=== PATIENT | female | born 1955 | race Two or more races ===

== ENCOUNTER 2017-02-13 14:38 | Emergency (ER) | payer MEDICAID ==
[~2017-02-13] VITALS: Ht 160 cm; Wt 54.0 kg
[2017-02-13 14:43] VITALS: BP 130/83
[2017-02-13] MEDS ORDERED: SODIUM CHLORIDE 0.9% 1,000 ML IV ONE (15:17)
[2017-02-13] MEDS ORDERED: CLINDAMYCIN 600MG IV 50 ML IV ONE (15:30)
[2017-02-13 15:59] LABS: Urine Bilirubin Negative (Negative); Urine Blood Negative /uL (Negative); Urine Color Yellow (Yellow); Urine Glucose 4+ mg/dL (Normal); Urine Ketone Negative (Negative); Urine Nitrite Negative (Negative); Urine RBC <1 /hpf (0 - 4); Urine Squamous Epithelial Cell FEW /hpf (<5); Urine Urobilinogen Normal (Negative); Urine pH 5.5 (5.0-8.0)
== END 2017-02-13 18:00 | disposition home or self-care (01) ==
LOC: ER 14:38
DX: R10.9 Unspecified abdominal pain (principal); F17.210 Nicotine dependence, cigarettes, uncomplicated
CPT/HCPCS: 81001; 93005

== ENCOUNTER 2017-03-08 12:18 | Emergency (ER) | payer MEDICAID ==
[~2017-03-08] VITALS: Ht 160 cm; Wt 50.8 kg
[2017-03-08 13:38] LABS: Basophils # (auto) 0 uL; Basophils % (auto) 0.6 % (0.0-2.0); Eosinophils # (auto) 0.1 uL; Eosinophils % (auto) 1.8 % (0.0-7.0); Hematocrit 43.4 % (36.0-46.0); Hemoglobin 14.8 g/dL (12.2-16.2); Lymphocytes # (auto) 2.2 uL; Lymphocytes % (auto) 41.4 % (10.0-50.0); Mean Corpuscular Hemoglobin 32.7 pg (28.0-32.0); Mean Corpuscular Hgb Conc. 34.1 g/dL (32.0-36.0); Mean Corpuscular Volume 95.9 fL (80.0-100.0); Monocytes # (auto) 0.4 uL; Monocytes % (auto) 7.6 % (0.0-12.0); Neutrophils # (auto) 2.6 uL; Neutrophils % (auto) 48.6 % (37.0-80.0); Nucleated Red Blood Cells % 0.2 %; Platelet Count (auto) 154 10^3/uL (140-450); Red Blood Cells 4.53 10^6/uL (4.0-5.20); Red Cell Distribution Width 13.5 % (11.8-14.3); White Blood Cell 5.4 10^3/uL (4.4-10.8)
[2017-03-08 13:46] LABS: Urine Bacteria NONE SEEN /hpf (None Seen); Urine Blood Negative /uL (Negative); Urine Specific Gravity 1.011 (1.001-1.035); Urine WBC <1 /hpf (0 - 5)
[2017-03-08 14:07] LABS: Alanine Aminotransferase 89 U/L (13-56); Albumin 3.9 g/dL (3.4-5.0); Alkaline Phosphatase 76 U/L (45-117); Amylase 81 U/L (25-115); Anion Gap 9 (5-15); Aspartate Aminotransferase 70 U/L (15-37); BUN/Creatinine Ratio 14.3; Bilirubin, Total 0.7 mg/dL (0.2-1.0); Blood Urea Nitrogen 9 mg/dL (7-18); Calcium 8.9 mg/dL (8.5-10.1); Carbon Dioxide 22 mmol/L (21-32); Chloride 108 mmol/L (98-107); GFR African American 124 mL/min; GFR Non-African American 102 mL/min; Glucose 104 mg/dL (74-106); Lipase 214 U/L (73-393); Potassium 3.9 mmol/L (3.5-5.1); Sodium 139 mmol/L (136-145); Total Protein 7.6 g/dL (6.4-8.2)
[2017-03-08] MEDS ORDERED: HYDROcodone-ACET 5/325MG TAB PO ONE (20:45)
[2017-03-08 20:49] VITALS: BP 107/74
== END 2017-03-08 21:51 | disposition home or self-care (01) ==
LOC: ER 12:18
DX: R10.11 Right upper quadrant pain (principal); E11.9 Type 2 diabetes mellitus without complications; I10 Essential (primary) hypertension; B19.20 Unspecified viral hepatitis C without hepatic coma; F17.210 Nicotine dependence, cigarettes, uncomplicated
CPT/HCPCS: 36415; 71010; 74176; 80053; 81001; 82150; 83690; 84484; 85025; 93005

== ENCOUNTER 2021-03-31 15:13 | Emergency (ER) | payer MEDICAID ==
[~2021-03-31] VITALS: Ht 160 cm; Wt 56.7 kg
[2021-03-31] MEDS ORDERED: cefTRIAXone 1GM/50ML D5W 50 ML IV ONE (17:45)
[2021-03-31 17:50] VITALS: BP 134/92
== END 2021-03-31 19:04 | disposition home or self-care (01) ==
LOC: ER 15:13
DX: S60.426A Blister (nonthermal) of right little finger, initial encounter (principal); I89.1 Lymphangitis; E11.9 Type 2 diabetes mellitus without complications; I10 Essential (primary) hypertension; F17.210 Nicotine dependence, cigarettes, uncomplicated; X58.XXXA Exposure to other specified factors, initial encounter; Y93.89 Activity, other specified; Y92.89 Other specified places as the place of occurrence of the external cause; Y99.8 Other external cause status
CPT/HCPCS: 26010; 96365; 99284; J0696

== ENCOUNTER 2021-04-01 14:37 | Emergency (ER) | payer MEDICAID ==
[~2021-04-01] VITALS: Ht 160 cm; Wt 56.7 kg
[2021-04-01 17:18] VITALS: BP 147/91
[2021-04-01] MEDS ORDERED: cefTRIAXone 1GM/50ML D5W 50 ML IV ONE (17:30)
== END 2021-04-01 19:01 | disposition home or self-care (01) ==
LOC: ER 14:37
DX: S60.42 Blister (nonthermal) of fingers (principal); L08.9 Local infection of the skin and subcutaneous tissue, unspecified; I89.1 Lymphangitis; I10 Essential (primary) hypertension; E11.9 Type 2 diabetes mellitus without complications; F17.210 Nicotine dependence, cigarettes, uncomplicated; X58.XXXD Exposure to other specified factors, subsequent encounter
CPT/HCPCS: 96365; 99284; J0696

== ENCOUNTER 2021-04-02 08:28 | Emergency (ER) | payer MEDICAID ==
[~2021-04-02] VITALS: Ht 160 cm; Wt 56.7 kg
[2021-04-02 09:01] VITALS: BP 163/83
[2021-04-02] MEDS ORDERED: cefTRIAXone 1GM/50ML D5W 50 ML IV ONE (09:45)
[2021-04-02] MEDS ORDERED: CLINDAMYCIN 600MG IV 50 ML IV ONE (10:00)
== END 2021-04-02 10:41 | disposition home or self-care (01) ==
LOC: ER 08:28
DX: L03.011 Cellulitis of right finger (principal); E11.9 Type 2 diabetes mellitus without complications; I10 Essential (primary) hypertension; F17.210 Nicotine dependence, cigarettes, uncomplicated
CPT/HCPCS: 96365; 96368; 99284; J0696; J3490

== ENCOUNTER 2021-08-28 16:03 | Emergency (ER) | payer MEDICAID ==
[~2021-08-28] VITALS: Ht 160 cm; Wt 54.4 kg
[2021-08-28 18:52] LABS: Basophils # (auto) 0 10 ^3/uL (0-0.2); Basophils % (auto) 0.5 % (0.0-2.0); Eosinophils # (auto) 0.1 10 ^3/uL (0-0.8); Eosinophils % (auto) 1.6 % (0.0-7.0); Hematocrit 39.9 % (36.0-46.0); Hemoglobin 13.9 g/dL (12.2-16.2); Lymphocytes # (auto) 2.6 10 ^3/uL (0.4-5.4); Lymphocytes % (auto) 39.1 % (10.0-50.0); Mean Corpuscular Hemoglobin 31.9 pg (28.0-32.0); Mean Corpuscular Hgb Conc. 34.7 g/dL (32.0-36.0); Mean Corpuscular Volume 91.8 fL (80.0-100.0); Monocytes # (auto) 0.4 10 ^3/uL (0-1.3); Monocytes % (auto) 5.9 % (0.0-12.0); Neutrophils # (auto) 3.5 10 ^3/uL (1.6-8.6); Neutrophils % (auto) 52.9 % (37.0-80.0); Nucleated Red Blood Cells % 0.3 %; Red Blood Cells 4.35 10^6/uL (4.0-5.20); Red Cell Distribution Width 13.9 % (11.8-14.3); White Blood Cell 6.6 10^3/uL (4.4-10.8)
[2021-08-28 19:03] LABS: Potassium 4.1 mmol/L (3.5-5.1)
[2021-08-28 19:05] LABS: BUN/Creatinine Ratio 13.4
[2021-08-28 19:08] LABS: Bilirubin, Total 0.4 mg/dL (0.2-1.0); Total Protein 7.5 g/dL (6.4-8.2)
[2021-08-28 19:11] LABS: Urine Bacteria NONE SEEN /hpf (None Seen); Urine Blood Negative /uL (Negative); Urine Specific Gravity 1.008 (1.001-1.035); Urine WBC 1 /hpf (0 - 5)
[2021-08-28] MEDS ORDERED: METR500T PO (20:04)
[2021-08-28] MEDS ORDERED: LEVO500T31 PO (20:04)
[2021-08-28 20:21] VITALS: BP 140/81
== END 2021-08-28 20:25 | disposition home or self-care (01) ==
LOC: ER 16:03
DX: K57.32 Diverticulitis of large intestine without perforation or abscess without bleeding (principal); I10 Essential (primary) hypertension; E11.9 Type 2 diabetes mellitus without complications; F17.210 Nicotine dependence, cigarettes, uncomplicated
CPT/HCPCS: 36415; 74176; 80053; 81001; 85025; 93005

== ENCOUNTER 2021-10-20 10:32 | Emergency (ER) | payer MEDICARE, MEDICAID ==
[~2021-10-20] VITALS: Ht 160 cm; Wt 59.0 kg
[~2021-10-20 10:32] MED LIST: LEVO500T31 PO; METR500T PO
[2021-10-20 11:26] LABS: Basophils # (auto) 0 10 ^3/uL (0-0.2); Basophils % (auto) 0.6 % (0.0-2.0); Eosinophils # (auto) 0.1 10 ^3/uL (0-0.8); Eosinophils % (auto) 2.2 % (0.0-7.0); Hemoglobin 13.4 g/dL (12.2-16.2); Lymphocytes # (auto) 2.6 10 ^3/uL (0.4-5.4); Lymphocytes % (auto) 43.1 % (10.0-50.0); Mean Corpuscular Hemoglobin 31.3 pg (28.0-32.0); Mean Corpuscular Hgb Conc. 32.6 g/dL (32.0-36.0); Mean Corpuscular Volume 95.9 fL (80.0-100.0); Monocytes # (auto) 0.4 10 ^3/uL (0-1.3); Monocytes % (auto) 7.3 % (0.0-12.0); Neutrophils # (auto) 2.8 10 ^3/uL (1.6-8.6); Neutrophils % (auto) 46.8 % (37.0-80.0); Nucleated Red Blood Cells % 0.1 %; Red Blood Cells 4.27 10^6/uL (4.0-5.20); Red Cell Distribution Width 13.6 % (11.8-14.3)
[2021-10-20] MEDS ORDERED: SODIUM CHLORIDE 0.9% 500 ML IVB ONE (11:30)
[2021-10-20] MEDS ORDERED: SODIUM CHLORIDE 0.9% 1,000 ML IV ONE (11:30)
[2021-10-20 11:49] LABS: Albumin 3.9 g/dL (3.4-5.0); Calcium 9.2 mg/dL (8.5-10.1); Potassium 3.7 mmol/L (3.5-5.1)
[2021-10-20 11:52] LABS: BUN/Creatinine Ratio 14.8
[2021-10-20 11:53] LABS: Bilirubin, Total 0.5 mg/dL (0.2-1.0); Total Protein 7.5 g/dL (6.4-8.2)
[2021-10-20 12:00] LABS: Magnesium 2.1 mg/dL (1.6-2.6)
[2021-10-20 12:13] LABS: Urine WBC None Seen /hpf (0 - 5)
[2021-10-20 12:35] LABS: Urine Bacteria NONE SEEN /hpf (None Seen); Urine Blood Negative /uL (Negative); Urine Specific Gravity 1.006 (1.001-1.035)
[2021-10-20] MEDS ORDERED: LISI-711 PO (16:48)
[2021-10-20] MEDS ORDERED: NAP500T PO (16:48)
[2021-10-20] MEDS ORDERED: KETOROLAC TROMETH 30 MG/ML 1ML VIAL IV ONE (17:00)
[2021-10-20 17:45] VITALS: BP 154/78
== END 2021-10-20 17:45 | disposition home or self-care (01) ==
LOC: ER 10:32
DX: N94.89 Other specified conditions associated with female genital organs and menstrual cycle (principal); I10 Essential (primary) hypertension; F17.210 Nicotine dependence, cigarettes, uncomplicated; E11.9 Type 2 diabetes mellitus without complications
CPT/HCPCS: 36415; 71046; 74177; 80053; 81001; 83690; 83735; 84443; 85025; 93005; 96361; 96374; 99285; J1885; J7030; J7040

== ENCOUNTER 2021-12-15 13:10 | Day surgery (SDC) | payer MEDICARE, MEDICAID ==
[2021-12-13 11:58] LABS: Basophils # (auto) 0 10 ^3/uL (0-0.2); Basophils % (auto) 0.5 % (0.0-2.0); Eosinophils # (auto) 0.1 10 ^3/uL (0-0.8); Eosinophils % (auto) 1.8 % (0.0-7.0); Hematocrit 38.6 % (36.0-46.0); Hemoglobin 12.8 g/dL (12.2-16.2); Lymphocytes # (auto) 1.9 10 ^3/uL (0.4-5.4); Lymphocytes % (auto) 29.5 % (10.0-50.0); Mean Corpuscular Hemoglobin 31.6 pg (28.0-32.0); Mean Corpuscular Hgb Conc. 33.2 g/dL (32.0-36.0); Mean Corpuscular Volume 95.2 fL (80.0-100.0); Monocytes # (auto) 0.4 10 ^3/uL (0-1.3); Monocytes % (auto) 6.2 % (0.0-12.0); Nucleated Red Blood Cells % 0.1 %; Red Blood Cells 4.06 10^6/uL (4.0-5.20); Red Cell Distribution Width 13.2 % (11.8-14.3); White Blood Cell 6.5 10^3/uL (4.4-10.8)
[2021-12-13 12:26] LABS: INR 0.95 (0.9-1.15); Partial Thromboplastin Time 26.2 sec (24.6-33.4)
[2021-12-13 12:29] LABS: Albumin 3.8 g/dL (3.4-5.0); BUN/Creatinine Ratio 21.4; Bilirubin, Total 0.3 mg/dL (0.2-1.0); Calcium 9.1 mg/dL (8.5-10.1); Total Protein 7.2 g/dL (6.4-8.2)
[~2021-12-15] VITALS: Ht 154.9 cm; Wt 54.4 kg
[~2021-12-15 13:10] MED LIST changes: +ALEN70TA2 PO; +CAPS0.1C6 EX; +CLON0.5T PO; +DICY10CA PO; +FAMO20TA10 PO; +INSREG3 IV; -LEVO500T31 PO; +LISI20TA28 PO; +METF-370 PO; -METR500T PO
[2021-12-15] MEDS ORDERED: SODIUM CHLORIDE LOCK 10 ML ONE (14:18)
[2021-12-15] MEDS: MIDAZOLAM HCL 5 MG/ML-1ML VIAL ONE ×2 (15:15→15:21)
[2021-12-15] MEDS: diphenhdrAMINE HCL 50 MG/1 ML VL ONE ×2 (15:15→15:22)
[2021-12-15] MEDS: fentaNYL CITRATE 100 MCG/2 ML VL ONE ×3 (15:15→15:25)
[2021-12-15 16:10] VITALS: BP 132/70
== END 2021-12-15 16:20 | disposition home or self-care (01) ==
LOC: GI 13:10
PROVIDERS: ATTEND Internal Medicine Gastroenterology
DX: Z12.11 Encounter for screening for malignant neoplasm of colon (principal); K64.8 Other hemorrhoids; K63.89 Other specified diseases of intestine; I10 Essential (primary) hypertension; E11.9 Type 2 diabetes mellitus without complications; K21.9 Gastro-esophageal reflux disease without esophagitis; B19.20 Unspecified viral hepatitis C without hepatic coma; F41.9 Anxiety disorder, unspecified; Z20.822 Contact with and (suspected) exposure to COVID-19
CPT/HCPCS: 36415; 80053; 82962; 85025; 85610; 85730; G0121; J1200; J2250; J3010; J7030; U0003; G0500

== ENCOUNTER → 2023-08-24 | Outpatient (CLI) | payer MEDICARE, MEDICAID ==
[~2023-08-24] MED LIST changes: -ALEN70TA2 PO; +ALEN70TA21 PO; +CLON-1003 PO; -CLON0.5T PO; -LISI20TA28 PO; +LISI20TA56 PO
[2023-08-24 13:02] LABS: Urine Bacteria FEW /hpf (None Seen); Urine Blood 3+ /uL (Negative); Urine Clarity Turbid (Clear); Urine Color Colorless (Yellow); Urine Protein, UAD Negative (Negative); Urine Specific Gravity 1.008 (1.001-1.035); Urine Urobilinogen Normal (Negative); Urine WBC 194 /hpf (0 - 5); Urine WBC Clumps PRESENT /hpf (None Seen)
== END | disposition home or self-care (01) ==
LOC: LAB 12:08
PROVIDERS: ATTEND Internal Medicine Gastroenterology
DX: R10.32 Left lower quadrant pain (principal)
CPT/HCPCS: 81001; 87086

== ENCOUNTER 2024-06-09 11:42 | Emergency (ER) | payer OTHER, MEDICARE, MEDICAID ==
[~2024-06-09] VITALS: Ht 160 cm; Wt 60.0 kg
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
[2024-06-09] MEDS: KETOROLAC TROMETH 30 MG/ML 1ML VIAL IM ONE (13:11)
[2024-06-09] MEDS: ACETAMINOPHEN 325 MG TAB PO ONE (13:12)
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
[2024-06-09 15:55] VITALS: BP 118/72; PULSE 73; RESP 16; TEMP 97.9; O2SAT 98
== END 2024-06-09 16:02 | disposition home or self-care (01) ==
LOC: ER 11:42
DX: M51.17 Intervertebral disc disorders with radiculopathy, lumbosacral region (principal); I10 Essential (primary) hypertension; E11.9 Type 2 diabetes mellitus without complications; F17.210 Nicotine dependence, cigarettes, uncomplicated; Z79.84 Long term (current) use of oral hypoglycemic drugs; Z79.899 Other long term (current) drug therapy; V89.2XXA Person injured in unspecified motor-vehicle accident, traffic, initial encounter; Y93.I9 Activity, other involving external motion; Y92.488 Other paved roadways as the place of occurrence of the external cause; Y99.8 Other external cause status
CPT/HCPCS: 72100; 96372; 99283; J1885

== ENCOUNTER 2024-10-12 09:42 | Inpatient (IN) | payer MEDICARE, MEDICAID ==
[~2024-10-12] VITALS: Ht 160 cm; Wt 59.4 kg
--- NOTE | 2024-10-12 10:06 | ED.PDOC ---
History of Present Illness HPI Comments 69F presents to the ER w/ prior MHx of DM, Osteopetrosis, HTN, Chronic back pain and the c/c of back pain. Pt reports the back pain starting on September 12 after an epidural shot. The pt stated on seeing her PCP which is Dr. Wolff and was informed on having a infection on the lumbar spine and told to go the the hospital yesterday. Denies chills, fever, N/V/D, SOB, CP. No other associated symptoms, modifiers, recent injuries or sick contacts present at this time. Time Seen by MD: 10:00 Primary Care Provider: ILA Reviewed Notes: Nurses Notes, Medications, Allergies Allergies: Coded Allergies: NO KNOWN ALLERGIES (Unverified , 01/12/15) Home Meds Reported Medications Lisinopril (Lisinopril) 20 Mg Tab, 20 MG PO DAILY, TAB 12/13/21 Famotidine (PEPCID TABLET) 20 Mg Tb, 20 MG PO BID, TAB 12/13/21 Dicyclomine Hcl (BENTYL CAPSULE) 10 Mg Cp, 10 MG PO BID, CAP 12/13/21 Alendronate Sodium (Fosamax) 70 Mg Tab, 70 MG PO QWEEKLY, TAB Take once a week at least 30 minutes before first meal, beverage or medication. 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 Family History Family History: Reviewed,noncontributory to illness, Unknown Social History Smoker: Unknown Alcohol: Unknown Drugs: Unknown Lives In: Home Constitutional: denies: chills, diaphoresis, fatigue, fever, malaise, sweats, weakness, others EENTM: denies: blurred vision, double vision, ear bleeding, ear discharge, ear drainage, ear pain, ear ringing, eye pain, eye redness, hearing loss, mouth pain, mouth swelling, nasal discharge, nose bleeding, nose congestion, nose pain, photophobia, tearing, throat pain, throat swelling, voice changes, others Respiratory: denies: cough, hemoptysis, orthopnea, SOB at rest, shortness of breath, SOB with excertion, stridor, wheezing, others Cardiovascular: denies: chest pain, dizzy spells, diaphoresis, Dyspnea on ex ertion, edema, irregular heart beat, left arm pain, lightheadedness, palpitations, PND, syncope, others Gastrointestinal: denies: abdomen distended, abdominal pain, blood streaked bowels, constipated, diarrhea, dysphagia, difficulty swallowing, hematemesis, melena, nausea, poor appetite, poor fluid intake, rectal bleeding, rectal pain, vomiting, others Genitourinary: denies: abnormal vagina bleeding, burning, dyspareunia, dysuria, flank pain, frequency, hematuria, incontinence, pain, , vagina discharge, urgency, others Neurological: denies: dizziness, fainting, headache, left sided numbness, left sided weakness, numbness, paresthesia, pre-existing deficit, right sided numbness, right sided weakness, seizure, speech problems, tingling, tremors, weakness, others Musculoskeletal: reports: back pain; denies: gout, joint pain, joint swelling, muscle pain, muscle stiffness, neck pain, others Integumetry: denies: bruises, change in color, change in hair/nails, dryness, laceration, lesions, lumps, rash, wounds, others Allergic/Immunocompromised: denies: Difficulty Healing, Frequent Infections, Hives, Itching, others Hematologic/Lymphatic: denies: anemia, blood clots, easy bleeding, easy bruising, swollen glands, others Endocrine: denies: excessive hunger, excessive sweating, excessive thirst, excessive urination, flushing, intolerance to cold, intolerance to heat, unexplained weight gain, unexplained weight loss, others Psychiatric: denies: anxiety, bipolar disorder, depression, hopeless, panic disorder, schizophrenia, sleepless, suicidal, others All Other Systems: Reviewed and Negative Physical Exam Exam Comments diffuse lumbar and perilumbar tenderness General Appearance: No Apparent Distress, Normal HEENT: Normal ENT Inspection, Pharynx Normal, TMs Normal Neck: Full Range of Motion, Non-Tender, Normal, Normal Inspection Respiratory: Chest Non-Tender, Lungs Clear, No Accessory Muscle Use, No Respiratory Distress, Normal Breath Sounds Cardiovascular: No Edema, No JVD, No Murmur, No Gallop, Normal Peripheral Pu lses, Regular Rate/Rhythm Breast Exam: Deferred Gastrointestinal: No Organomegaly, Non Tender, No Pulsatile Mass, Normal Bowel Sounds, Soft Genitalia: Deferred Pelvic: Deferred Rectal: Deferred Extremities: No calf tenderness, Normal capillary refill, Normal inspection, Normal range of motion, Non-tender, No pedal edema Musculoskeletal : Apperance: Normal Neurologic: Alert, auto customize painter II-XII nml as Tested, No Motor Deficits, Normal Affect, Normal Mood, No Sensory Deficits Cerebellar Function: Normal Reflexes: Normal Skin: Dry, Normal Color, Warm Lymphatic: No Adenopathy Was a procedure done? Was a procedure done?: No Differential Dx Considerations may include: osteomyelitis, epidural abscess, diskitis, spine lesions, pathologic spine fractures, herniated disk, X-Ray, Labs, Meds, VS Vital Signs Date Time Temp Pulse Resp B/P (MAP) Pulse Ox O2 Delivery O2 Flow Rate FiO2 10/12/24 10:01 98.4 91 18 128/79 (95) 97 98.4 Time of 1ST Reevaluation: 10:30 Reevaluation 1ST: Unchanged Consultation: Other (i spoke to Dr mccarty, who verified the history and is requesting pt to be admitted for ID consult and iv abx) Patient Education/Counseling: Diagnosis, Treatment, Prognosis, Need For Follow Up Family Education/Counseling: No Family Present Departure 1 Departure Time of Disposition: 10:23 Impression: Primary Impression: Acute osteomyelitis of lumbar spine Disposition: ADMITTED INPATIENT Admit to: Med Surg Condition: Serious Discharged With: Self Critical Care Note Critical Care Time?: No Stability Stability form required: No I personally scribed for SIDRA NAVARRETE MD ([email or web address]) on 10/12/24 at 10:06. Electronically submitted by Glen Powers ([email or web address]). SIDRA NAVARRETE MD Oct 12, 2024 10:06
[2024-10-12] MEDS ORDERED: VANCOMYCIN PER PHARMACY 0 MG IV SCH ×2 (10:15→12:45)
[2024-10-12 10:30] LABS: Basophils # (auto) 0 10 ^3/uL (0-0.2); Basophils % (auto) 0.4 % (0.0-2.0); Eosinophils # (auto) 0.1 10 ^3/uL (0-0.8); Eosinophils % (auto) 1.1 % (0.0-7.0); Hematocrit 38.1 % (36.0-46.0); Hemoglobin 12.9 g/dL (12.2-16.2); Lymphocytes # (auto) 1.6 10 ^3/uL (0.4-5.4); Mean Corpuscular Hemoglobin 30.6 pg (28.0-32.0); Mean Corpuscular Hgb Conc. 33.8 g/dL (32.0-36.0); Mean Corpuscular Volume 90.6 fL (80.0-100.0); Monocytes # (auto) 0.4 10 ^3/uL (0-1.3); Monocytes % (auto) 5.9 % (0.0-12.0); Neutrophils # (auto) 4.9 10 ^3/uL (1.6-8.6); Neutrophils % (auto) 69.6 % (37.0-80.0); Platelet Count (auto) 259 10^3/uL (140-450); Red Blood Cells 4.21 10^6/uL (4.0-5.20); Red Cell Distribution Width 12.6 % (11.8-14.3)
[2024-10-12 10:37] LABS: Chloride 105 mmol/L (98-107); Sodium 140 mmol/L (136-145)
[2024-10-12 10:38] LABS: Anion Gap 11 (5-15); Calcium 10.2 mg/dL (8.7-10.4); Carbon Dioxide 24 mmol/L (20-31)
[2024-10-12 10:43] LABS: Blood Urea Nitrogen 10 mg/dL (9-23)
[2024-10-12 10:48] LABS: Glucose 188 mg/dL (74-106)
[2024-10-12] MEDS: PIPERACILLIN-TAZO 4.5GM 100 ML IV ONE (10:51)
[2024-10-12 10:56] VITALS: PULSE 83; RESP 16; O2SAT 97
[2024-10-12] MEDS ORDERED: ACETAMINOPHEN 325 MG TAB PO PRN (12:30)
[2024-10-12] MEDS ORDERED: SODIUM CHLORIDE 0.9% 1,000 ML IV SCH (12:30)
[2024-10-12] MEDS ORDERED: DEXTROSE (50%) 50ML SYRG IV PRN (12:30)
[2024-10-12] MEDS ORDERED: DOCUSATE SOD 100 MG CAP PO PRN (12:45)
[2024-10-12] MEDS: SODIUM CHLORIDE 0.9% 1,000 ML IV SCH (13:30)
[2024-10-12] MEDS: VANCOMYCIN 1GM/200ML PM 250 ML IV SCH (13:30)
--- NOTE | 2024-10-12 13:33 | DVHHP2 ---
History of Present Illness Reason for Visit: Back pain due to lumbar infection History of Present Illness This is a 69-year-old female with history of DM, osteoporosis, hypertension, chronic back pain who presents to ER with chief complaint of back pain status post epidural injection received on September 02. She states that she went to see Dr. Cortes informed that spine is infected as he you had directed her to go to the hospital. The patient is concerned about her symptoms and would like to be further evaluated and treated. [facility]. The patient denies chills, fever, nausea, vomiting, diarrhea, shortness of breath, chest pain and other associated symptoms. The plan has been discussed with the patient in which all questions concerns have been addressed. Cardiovascular: HTN Endocrine: Diabetes Past Surgical History: None Family History: None Smoke: No ALCOHOL: none Drugs: None Lives: with Family Domestic Violence: Neg Review of Systems Musculoskeletal: back pain Allergies: Coded Allergies: NO KNOWN ALLERGIES (Unverified , 01/12/15) Medications Current Medications Medications Dose Ordered Sig/Eron Route Start Time Stop Time Status Last Admin Dose Admin Vancomycin HCl 0 ml @ 0 mls/hr UD IV 10/12/24 10:15 Sodium Chloride 1,000 ml @ 60 mls/hr [id number] IV 10/12/24 12:30 UNV Enoxaparin Sodium 40 mg DAILY SC 10/13/24 10:00 UNV Acetaminophen 650 mg Q6HP PRN PO 10/12/24 12:30 UNV Diagnostic Test (Pha) 1 strip ACHS 10/12/24 17:00 UNV Insulin Human Regular ACHS SC 10/12/24 17:00 UNV Dextrose 50 ml UD PRN IV 10/12/24 12:30 UNV Clonazepam 0.5 mg TID PO 10/12/24 14:00 UNV Dicyclomine HCl 10 mg BID PO 10/12/24 22:00 UNV Famotidine 20 mg BID PO 10/12/24 22:00 UNV Lisinopril 20 mg DAILY PO 10/13/24 10:00 UNV Patient Own Medication 70 mg QWEEKLY PO 10/12/24 12:45 UNV Sodium Chloride 1,000 ml @ 60 mls/hr [id number] IV 10/12/24 12:45 UNV Acetaminophen 325 mg Q4HP PRN PO 10/12/24 12:45 UNV Acetaminophen/ Hydrocodone Bitart 1 tab Q4HP PRN PO 10/12/24 12:45 UNV Docusate Sodium 100 mg BIDPRN PRN PO 10/12/24 12:45 UNV Enoxaparin Sodium 40 mg DAILY SC 10/13/24 10:00 UNV Vancomycin HCl 0 ml @ 0 mls/hr UD IV 10/12/24 12:45 UNV Piperacillin Sod/ Tazobactam Sod 100 ml @ 25 mls/hr Q8HR IV 10/12/24 14:00 UNV Vancomycin HCl 250 ml @ 250 mls/hr Q1H IV 10/12/24 12:45 10/12/24 14:44 Exam Vital Signs Vital Signs Date Time Temp Pulse Resp B/P (MAP) Pulse Ox O2 Delivery O2 Flow Rate FiO2 10/12/24 12:32 97.6 72 15 127/65 (85) 99 97.6 10/12/24 10:56 Room Air* 0 21 General Appearance: Alert, Oriented X3, Cooperative, No acute distress HEENT: Atraumatic, PERRLA, Mucous membr. moist/pink Respiratory: Clear to auscultation, Normal air movement Cardiovascular: Normal S1, Normal S2, No murmurs Abdominal: Normal bowel sounds, Soft, No tenderness, No hepatospenomegaly, No masses Extremities: No clubbing, No cyanosis, No edema, Normal pulses, No tenderness/swelling Skin: No rashes, No breakdown Neuro: Normal gait, Normal speech, Strength at 5/5 X4 ext, Normal tone, Sensation intact, Cranial nerves 3-12 NL, Reflexes 2+ Psych/Mental Status: Mental status NL Labs/Xrays Labs Test 10/12/24 10:20 Range/Units White Blood Count 7.0 4.4-10.8 10^3/uL Red Blood Count 4.21 4.0-5.20 10^6/uL Hemoglobin 12.9 12.2-16.2 g/dL Hematocrit 38.1 36.0-46.0 % Mean Corpuscular Volume 90.6 80.0-100.0 fL Mean Corpuscular Hemoglobin 30.6 28.0-32.0 pg Mean Corpuscular Hemoglobin Concent 33.8 32.0-36.0 g/dL Red Cell Distribution Width 12.6 11.8-14.3 % Platelet Count 259 140-450 10^3/uL Mean Platelet Volume 7.7 6.9-10.8 fL Neutrophils (%) (Auto) 69.6 37.0-80.0 % Lymphocytes (%) (Auto) 23.0 10.0-50.0 % Monocytes (%) (Auto) 5.9 0.0-12.0 % Eosinophils (%) (Auto) 1.1 0.0-7.0 % Basophils (%) (Auto) 0.4 0.0-2.0 % Neutrophils # (Auto) 4.9 1.6-8.6 10 ^3/uL Lymphocytes # (Auto) 1.6 0.4-5.4 10 ^3/uL Monocytes # (Auto) 0.4 0-1.3 10 ^3/uL Eosinophils # (Auto) 0.1 0-0.8 10 ^3/uL Basophils # (Auto) 0 0-0.2 10 ^3/uL Nucleated Red Blood Cells 0.0 % Sodium Level 140 136-145 mmol/L Potassium Level 4.0 3.5-5.1 mmol/L Chloride Level 105 98-107 mmol/L Carbon Dioxide Level 24 20-31 mmol/L Anion Gap 11 5-15 Blood Urea Nitrogen 10 9-23 mg/dL Creatinine 0.77 0.550-1.02 mg/dL Glomerular Filtration Rate Calc 84 >90 mL/min BUN/Creatinine Ratio 13.0 10.0-20.0 Serum Glucose 188 H 74-106 mg/dL Calcium Level 10.2 8.7-10.4 mg/dL Assessment/Plan Assessment/Plan Back pain due to lumbar infection--patient presents to ED with chief complaint of low back pain and was told to come to the emergency room as her lumbar spine is infected status post epidural injection The patient received epidural injection on September 12 Admit to medical-surgical unit Reviewed CBC which is normal Reviewed BMP which is normal IV antibiotic vancomycin and Zosyn has been initiated in the ER we will continue this [place] p.r.n. for pain Type 2 DM Hold antidiabetic medication for now Insulin mild SS a.c. and HS Accu-Cheks per protocol Continue to monitor Hypertension Continue lisinopril as prescribed Reconcile home medication Labs in a.m. Discussed plan of care with the patient in which all questions concerns have been addressed Plan discussed with: Patient My Orders Orders - GUS [facility]KE[facility] QUALITY CONTROL CLERK Procedure Category Date Status Time Admit ADMIT 10/12/24 Transmitted 12:20 2 Gm Sodium Diet DIET 10/12/24 Transmitted Lunch Sodium Chloride 0.9% PHA 10/12/24 Logged 12:30 Enoxaparin Sodium PHA 10/13/24 Logged (Lovenox) 10:00 Complete Blood Count LAB 10/13/24 Verified 04:00 Comprehensive LAB 10/13/24 Verified Metabolic Panel 04:00 Condition: Fair ARABELLA 10/12/24 In Process 12:20 Acetaminophen Tablet PHA 10/12/24 Logged (Tylenol Tablet) 12:30 BRP ARABELLA 10/12/24 In Process 12:20 Glucose Blood PHA 10/12/24 Logged (Accu-Chek Comfort 17:00 Insulin R (Human) PHA 10/12/24 Logged (Insulin R) 17:00 Dextrose 50% Syringe PHA 10/12/24 Logged 12:30 Clonazepam Tablet PHA 10/12/24 Logged (Klonopin Tablet) 14:00 Dicyclomine Capsule PHA 10/12/24 Logged (Bentyl Capsule) 22:00 Famotidine Tablet PHA 10/12/24 Logged (Pepcid Tablet) 22:00 Lisinopril Tablet PHA 10/13/24 Logged (Zestril Tablet) 10:00 (Nf) Alendronate PHA 10/12/24 Logged Sodium (Fosamax) 12:45 Sodium Chloride 0.9% PHA 10/12/24 Logged 12:45 Acetaminophen Tablet PHA 10/12/24 Logged (Tylenol Tablet) 12:45 Hydrocodone-Acet PHA 10/12/24 Logged 5/325mg Tab ([place] 12:45 Docusate Sodium PHA 10/12/24 Logged Capsule (Colace 12:45 Enoxaparin Sodium PHA 10/13/24 Logged (Lovenox) 10:00 Piperacillin-Tazob PHA 10/12/24 Logged 3.375gm (Zosyn 3.375g 14:00 Date of Service: Oct 12, 2024 Billing Provider: GUS WAKEFIELD QUALITY CONTROL CLERK Common Visit Codes: [id number] INP/OBS CARE (HIGH) GUS WAKEFIELD [facility] Oct 12, 2024 13:33
[2024-10-12] MEDS: ENOXAPARIN SOD 40 MG/0.4 ML SYRINGE SC SCH (13:35)
[2024-10-12] MEDS ORDERED: ALENDRONATE SODIUM 70 MG PO SCH (13:44)
[2024-10-12] MEDS ORDERED: ALENDRONATE SODIUM 10 MG TAB PO SCH (14:00)
[2024-10-12] MEDS: clonazePAM 0.5 MG TAB PO SCH (15:06)
[2024-10-12 15:43] VITALS: PULSE 67; RESP 14; O2SAT 99
[2024-10-12 17:00] VITALS: BP 135/80; PULSE 61; RESP 18; TEMP 97.8; O2SAT 95
[2024-10-12] MEDS: ACCU-CHEK COMFORT CURVE STRIP VI SCH (17:12)
[2024-10-12] MEDS: InsuLIN REG 1unit/0.01ml Soln (100units/ml) SC SCH (17:38)
[2024-10-12 18:45] VITALS: BP 158/75; PULSE 65; RESP 18; TEMP 97.5; O2SAT 98
[2024-10-12] MEDS: HYDROcodone-ACET 5/325MG TAB PO PRN (20:23)
[2024-10-12 21:00] VITALS: BP 140/72; PULSE 68; RESP 16; TEMP 97.8; O2SAT 98
[2024-10-12] MEDS: DICYCLOMINE HCL 10 MG CAP PO SCH (22:08)
[2024-10-12] MEDS: FAMOTIDINE 20 MG TAB PO SCH (22:08)
[2024-10-12] MEDS: PIPERACILLIN-TAZOB 3.375GM 100 ML IV SCH (22:08)
[2024-10-13] VITALS (7 sets, daily range): BP systolic 111–120; BP diastolic 55–67; PULSE 68–77; RESP 15–18; TEMP 97.4–98.4; O2SAT 93–97
[2024-10-13 05:55] LABS: Basophils # (auto) 0 10 ^3/uL (0-0.2); Basophils % (auto) 0.5 % (0.0-2.0); Eosinophils # (auto) 0.2 10 ^3/uL (0-0.8); Hematocrit 35.5 % (36.0-46.0); Hemoglobin 12.3 g/dL (12.2-16.2); Lymphocytes # (auto) 1.6 10 ^3/uL (0.4-5.4); Lymphocytes % (auto) 34.3 % (10.0-50.0); Mean Corpuscular Hemoglobin 31.2 pg (28.0-32.0); Mean Corpuscular Hgb Conc. 34.5 g/dL (32.0-36.0); Mean Corpuscular Volume 90.4 fL (80.0-100.0); Monocytes # (auto) 0.4 10 ^3/uL (0-1.3); Monocytes % (auto) 8.2 % (0.0-12.0); Neutrophils # (auto) 2.5 10 ^3/uL (1.6-8.6); Nucleated Red Blood Cells % 0.1 %; Platelet Count (auto) 230 10^3/uL (140-450); Red Blood Cells 3.93 10^6/uL (4.0-5.20); Red Cell Distribution Width 12.6 % (11.8-14.3); White Blood Cell 4.6 10^3/uL (4.4-10.8)
[2024-10-13 06:13] LABS: Alanine Aminotransferase 18 U/L (7-40); Alkaline Phosphatase 79 U/L (46-116); Anion Gap 11 (5-15); BUN/Creatinine Ratio 9.5 (10.0-20.0); Blood Urea Nitrogen 7 mg/dL (9-23); Calcium 8.8 mg/dL (8.7-10.4); Carbon Dioxide 23 mmol/L (20-31); Chloride 105 mmol/L (98-107); Glucose 186 mg/dL (74-106); Potassium 3.8 mmol/L (3.5-5.1); Sodium 139 mmol/L (136-145); Total Protein 6.3 g/dL (5.7-8.2)
[2024-10-13 06:14] LABS: Albumin 4.1 g/dL (3.2-4.8); Aspartate Aminotransferase 26 U/L (<34); Bilirubin, Total 0.4 mg/dL (0.2-1.0)
[2024-10-13] MEDS ORDERED: ENOXAPARIN SOD 40 MG/0.4 ML SYRINGE SC SCH (10:00)
[2024-10-13] MEDS: LISINOPRIL 20 MG TAB PO SCH (10:24)
[2024-10-13] MEDS: VANCOMYCIN 500mg/100mL 100 ML IV SCH (11:51)
--- NOTE | 2024-10-13 12:17 | DVHPN2 ---
Reviewed: Care Plan, H&P, Labs, Medications, Previous Orders, Radiology Changes from previous H/P or p: No Changes Musculoskeletal: back pain Objective Vitals Vital Signs Date Time Temp Pulse Resp B/P (MAP) Pulse Ox O2 Delivery O2 Flow Rate FiO2 10/13/24 10:24 112/56 10/13/24 09:00 97.8 71 16 96 97.8 10/13/24 08:00 Room Air* 0 21 Intake/Output Intake and Output 10/13/24 06:59 Intake Total 1575 ml Output Total 0 ml Balance 1575 ml Intake Oral 1100 ml IV Total 475 ml Output Urine Total 0 ml Medications Current Medications Medications Dose Ordered Sig/Eron Route Start Time Stop Time Status Last Admin Dose Admin Vancomycin HCl 0 ml @ 0 mls/hr UD IV 10/12/24 10:15 Acetaminophen 650 mg Q6HP PRN PO 10/12/24 12:30 Hold Diagnostic Test (Pha) 1 strip ACHS 10/12/24 17:00 10/13/24 11:32 1 STRIP Insulin Human Regular ACHS SC 10/12/24 17:00 10/13/24 11:35 2 UNITS Dextrose 50 ml UD PRN IV 10/12/24 12:30 Clonazepam 0.5 mg TID PO 10/12/24 14:00 10/13/24 05:39 0.5 MG Dicyclomine HCl 10 mg BID PO 10/12/24 22:00 10/13/24 10:25 10 MG Famotidine 20 mg BID PO 10/12/24 22:00 10/13/24 10:23 20 MG Lisinopril 20 mg DAILY PO 10/13/24 10:00 10/13/24 10:24 20 MG Sodium Chloride 1,000 ml @ 60 mls/hr [id number] IV 10/12/24 12:45 10/12/24 22:20 60 MLS/HR Acetaminophen 325 mg Q4HP PRN PO 10/12/24 12:45 Acetaminophen/ Hydrocodone Bitart 1 tab Q4HP PRN PO 10/12/24 12:45 10/13/24 06:48 1 TAB Docusate Sodium 100 mg BIDPRN PRN PO 10/12/24 12:45 Enoxaparin Sodium 40 mg DAILY SC 10/12/24 13:31 10/13/24 10:26 40 MG Vancomycin HCl 0 ml @ 0 mls/hr UD IV 10/12/24 12:45 UNV Piperacillin Sod/ Tazobactam Sod 100 ml @ 25 mls/hr Q8HR IV 10/12/24 22:00 10/13/24 05:40 25 MLS/HR Alendronate Sodium 70 mg QWEEKLY PO 10/12/24 14:00 Vancomycin HCl 100 ml @ 200 mls/hr Q8H IV 10/13/24 12:00 10/13/24 11:51 200 MLS/HR Laboratory Results Laboratory Tests 10/13/24 05:39 Chemistry Test 10/13/24 05:39 Albumin 4.1 g/dL (3.2-4.8) Calcium Level 8.8 mg/dL (8.7-10.4) Total Protein 6.3 g/dL (5.7-8.2) LFT Test 10/13/24 05:39 Alanine Aminotransferase (ALT) 18 U/L (7-40) Alkaline Phosphatase 79 U/L (46-116) Aspartate Amino Transferase (AST) 26 U/L (<34) Total Bilirubin 0.4 mg/dL (0.2-1.0) Labs and/or images reviewed: Labs reviewed by me, Image(s) reviewed by me Assessment/Plan Assessment/Plan Possible Infection LS spine: MRI LS spine Vancomycin Zosyn consult for Dr. Cortes. Status post epidural injection 09/12/2024 Diabetes Rocephin scale Hypertension History of osteoporosis Time spent 65 minutes Advanced care planning time 20 minutes Patient is full code Plan discussed with: Patient Date of Service: Oct 13, 2024 Billing Provider: YAO SUH MD Common Visit Codes: [id number] CARE 30-74 MIN YAO SUH MD Oct 13, 2024 12:17
--- NOTE | 2024-10-13 14:18 | DVH ---
EXAM: MRI LUMBAR SPINE WO CONTRAST CLINICAL HISTORY: Rule out osteomyelitis of the spine COMPARISON: None TECHNIQUE: MRI imaging of the lumbar was performed on a MRI imaging system without intravenous contrast. FINDINGS: Rib-bearing lumbar-type vertebrae. Normal alignment of the lumbar spine. The vertebral body heights relatively maintained. Heterogeneous marrow signal of T12 through L3 which saturates out on the STIR. Inferior L5 with the adjacent superior S1 acute appearing Schmorl node. Near-complete T1 hypointense , T2 / FLAIR hyperintensity of L5 [id number]-left L4 and S1 vertebral bodies. There is minima l L4 anterior disc edema extending to an anterior inferior L4 endplate focal irregularity. Otherwise , no Significant marrow edema of the disc or endplate erosive changes. No significant abnormalities o f the psoas muscles. The conus terminates at the level of the lower vertebral body of L1. No abnormal cord signal. T12-L1: No significant spinal canal or neural foramina stenosis. L1-L2: No significant spinal canal or neural foramina stenosis. Mild bilateral facet effusion. L2-L3: No significant spinal canal or neural foramina stenosis. Mild bilateral facet effusion. L3-L4: Spinal canal and neural foramina stenosis. Mild bilateral facet effusion. L4-L5: Mild posterior disc bulge without significant spinal canal stenosis. Moderate bilateral neural foramina stenosis. L5-S1: Mild posterior disc bulge with superimposed central disc protrusion and minimal annular fissur e without significant spinal canal stenosis. Severe bilateral neural foramina stenosis. Mild atrophy of the lower paraspinal muscles. Mild nonspecific lower back midline Subcutaneous fat edema. IMPRESSION: Near-complete T1 hypointense, T2/FLAIR hyperintense marrow signal of the L5 greater than L4 and S1 ve rtebral bodies with minimal L4-L5 anterior disc edema associated minimal cortical inferior L4 endplat es irregularity. Otherwise, no significant edema of the disc. Correlate for Possible atypical spinal osteomyelitis versus metastasis. Moderate bilateral neural foramina stenosis at L4-L5 with severe bilateral neural foramina stenosis a t L5-S1.
[2024-10-14 01:00] VITALS: BP 126/61; PULSE 61; RESP 18; TEMP 97.1; O2SAT 94
[2024-10-14 05:00] VITALS: BP 109/67; PULSE 65; RESP 18; TEMP 98; O2SAT 94
--- NOTE | 2024-10-14 07:52 | DVHINCON2 ---
Consultation - Spinal Surgery Date Seen: Oct 14, 2024 Referring Physician Referring Physician Attending Doctor: Mirian Singh, Dr Harry AngelAccount Number: [id number] Reason for Consultation Reason for Visit: Back pain due to lumbar infection History of Present Illness History of Present Illness History of Present Illness This is a 69-year-old female with history of DM, osteoporosis, hypertension, chronic back pain who presents to ER with chief complaint of back pain status post epidural injection received on September 02. She states that she went to see Dr. Cortes informed that spine is infected as he you had directed her to go to the hospital. The patient is concerned about her symptoms and would like to be further evaluated and treated. The patient will be admitted under hospitalist care to the medical-surgical unit. The patient denies chills, fever, nausea, vomiting, diarrhea, shortness of breath, chest pain and other associated symptoms. The plan has been discussed with the patient in which all questions concerns have been addressed. Past Medical/Surgical History Past Medical/Surgical History Cardiovascular: HTN Endocrine: Diabetes Past Surgical History: None Family and Social History Family and Social History Family History: None Smoke: No ALCOHOL: none Drugs: None Lives: with Family Domestic Violence: Neg Allergies and medications Allergies: Coded Allergies: NO KNOWN ALLERGIES (Unverified , 01/12/15) Home Meds Reported Medications Lisinopril (Lisinopril) 20 Mg Tab, 20 MG PO DAILY, TAB 12/13/21 Famotidine (PEPCID TABLET) 20 Mg Tb, 20 MG PO BID, TAB 12/13/21 Dicyclomine Hcl (BENTYL CAPSULE) 10 Mg Cp, 10 MG PO BID, CAP 12/13/21 Alendronate Sodium (Fosamax) 70 Mg Tab, 70 MG PO QWEEKLY, TAB Take once a week at least 30 minutes before first meal, beverage or medication. 11/10/21 Capsaicin (CAPSAICIN) 0.1 % Cre, 0.1 % EX, CRE 11/10/21 Clonazepam (Klonopin) 0.5 Mg Tab, 0.5 MG PO TID, TAB 11/10/21 Insulin Regular (Human) (Humulin R) 100 Unit/Ml Inj, 100 UNIT IV, INJ 0.05 units/kg 11/10/21 Metformin Hydrochloride (Metformin Hcl) 500 Mg Tab, 500 MG PO BID, TAB 11/10/21 Review of systems Review of Systems: HEENT:Normal, RESPIRATORY:Normal, GI:Normal, :Normal, MSK:Abnormal (left back spasms), NEURO:Abnormal (Patient reports significant lower back pain localized in the mid and lateral aspect of the lower back radiating towards bilateral lateral thighs.) Examination Vital signs imaging EXAM: MRI LUMBAR SPINE WO CONTRAST CLINICAL HISTORY: Rule out osteomyelitis of the spine COMPARISON: None TECHNIQUE: MRI imaging of the lumbar was performed on a MRI imaging system without intravenous contrast. FINDINGS: Rib-bearing lumbar-type vertebrae. Normal alignment of the lumbar spine. The vertebral body heights relatively maintained. Heterogeneous marrow signal of T12 through L3 which saturates out on the STIR. Inferior L5 with the adjacent superior S1 acute appearing Schmorl node. Near-complete T1 hypointense, T2 / FLAIR hyperintensity of L5 [id number]-left L4 and S1 vertebral bodies. There is minimal L4 anterior disc edema extending to an anterior inferior L4 endplate focal irregularity. Otherwise, no Significant marrow edema of the disc or endplate erosive changes. No significant abnormalities of the psoas muscles. The conus terminates at the level of the lower vertebral body of L1. No abnormal cord signal. T12-L1: No significant spinal canal or neural foramina stenosis. L1-L2: No significant spinal canal or neural foramina stenosis. Mild bilateral facet effusion. L2-L3: No significant spinal canal or neural foramina stenosis. Mild bilateral facet effusion. L3-L4: Spinal canal and neural foramina stenosis. Mild bilateral facet effusion. L4-L5: Mild posterior disc bulge without significant spinal canal stenosis. Moderate bilateral neural foramina stenosis. L5-S1: Mild posterior disc bulge with superimposed central disc protrusion and minimal annular fissure without significant spinal canal stenosis. Severe bilateral neural foramina stenosis. Mild atrophy of the lower paraspinal muscles. Mild nonspecific lower back midline Subcutaneous fat edema. IMPRESSION: Near-complete T1 hypointense, T2/FLAIR hyperintense marrow signal of the L5 greater than L4 and S1 vertebral bodies with minimal L4-L5 anterior disc edema associated minimal cortical inferior L4 endplates irregularity. Otherwise, no significant edema of the disc. Correlate for Possible atypical spinal osteomyelitis versus metastasis. Moderate bilateral neural foramina stenosis at L4-L5 with severe bilateral neural foramina stenosis at L5-S1. Vital Signs Date Time Temp Pulse Resp B/P (MAP) Pulse Ox O2 Delivery O2 Flow Rate FiO2 10/14/24 07:47 Room Air* 0 21 10/14/24 05:00 98.0 65 18 109/67 (81) 94 98.0 Medications Current Medications Medications (Trade) Dose Ordered Sig/Eron Route PRN Reason Start Time Stop Time Status Last Admin Enoxaparin Sodium (Lovenox) 40 mg DAILY SC 10/13/24 10:00 10/12/24 13:33 DC Lisinopril (Zestril Tablet) 20 mg DAILY PO 10/13/24 10:00 10/13/24 10:24 Vancomycin HCl 100 ml @ 200 mls/hr Q8H IV 10/13/24 12:00 10/14/24 04:01 Laboratory Labs Test 10/14/24 05:46 10/13/24 05:39 Range/Units POC Glucose 124 H 70-106 mg/dl White Blood Count 4.6 # 4.4-10.8 10^3/uL Red Blood Count 3.93 L 4.0-5.20 10^6/uL Hemoglobin 12.3 12.2-16.2 g/dL Hematocrit 35.5 L 36.0-46.0 % Mean Corpuscular Volume 90.4 80.0-100.0 fL Mean Corpuscular Hemoglobin 31.2 28.0-32.0 pg Mean Corpuscular Hemoglobin Concent 34.5 32.0-36.0 g/dL Red Cell Distribution Width 12.6 11.8-14.3 % Platelet Count 230 140-450 10^3/uL Mean Platelet Volume 7.7 6.9-10.8 fL Neutrophils (%) (Auto) 53.0 37.0-80.0 % Lymphocytes (%) (Auto) 34.3 10.0-50.0 % Monocytes (%) (Auto) 8.2 0.0-12.0 % Eosinophils (%) (Auto) 4.0 0.0-7.0 % Basophils (%) (Auto) 0.5 0.0-2.0 % Neutrophils # (Auto) 2.5 1.6-8.6 10 ^3/uL Lymphocytes # (Auto) 1.6 0.4-5.4 10 ^3/uL Monocytes # (Auto) 0.4 0-1.3 10 ^3/uL Eosinophils # (Auto) 0.2 0-0.8 10 ^3/uL Basophils # (Auto) 0 0-0.2 10 ^3/uL Nucleated Red Blood Cells 0.1 % Sodium Level 139 136-145 mmol/L Potassium Level 3.8 3.5-5.1 mmol/L Chloride Level 105 98-107 mmol/L Carbon Dioxide Level 23 20-31 mmol/L Anion Gap 11 5-15 Blood Urea Nitrogen 7 L 9-23 mg/dL Creatinine 0.74 0.550-1.02 mg/dL Glomerular Filtration Rate Calc 88 >90 mL/min BUN/Creatinine Ratio 9.5 L 10.0-20.0 Serum Glucose 186 H 74-106 mg/dL Calcium Level 8.8 8.7-10.4 mg/dL Total Bilirubin 0.4 0.2-1.0 mg/dL Aspartate Amino Transferase (AST) 26 <34 U/L Alanine Aminotransferase (ALT) 18 7-40 U/L Alkaline Phosphatase 79 46-116 U/L Total Protein 6.3 5.7-8.2 g/dL Albumin 4.1 3.2-4.8 g/dL Random Vancomycin Level 10.7 H 5-10 ug/mL Examination: GENERAL:Normal, HEENT:Normal, NECK:Normal, LUNGS:Normal, CVS:Normal, ABDOMEN:Normal, MSK:Normal (strong x 4 ), SKIN:Normal, NEURO:Normal (sensation intact to all 4 ), :Normal Problem List/Assessment/Plan Problems: (1) Lumbar radiculopathy Assessment and Plan Osteomyelitis Further care per admitting team's discretion Muscle relaxers to relieve muscle spasms patient is experiencing Follow recommendations given by infectious disease team At this time patient is not a spine surgery candidate for this diagnosis of osteomyelitis Patient will need outpatient follow up with Infectious diseases to clear this infection Physical therapy evaluation treatment recommendations and discharge planning Patient can be discharged as long as she is safe from a spine surgery perspective Patient will follow up with Dr. Wolff after her osteomyelitis is cleared Call [phone] for a appointment, or to change or confirm your appoinment [id number] [place] [address], [address], [place] [address] Call with questions Rik Page [facility] Orthopaedic Spine Surgery nurse practitioner For Dr Nawaf Cortes Patient was examined, chart reviewed, labs evaluated, and diagnostic studies and findings analyzed. Case was discussed with Dr. Javi Cortes who formulated the plan of care. This medical document was created using an electronic medical record system with [employer] dictation system. Although this document has been carefully reviewed, there might still be some phonetic and typographical errors. These areas are purely typographical due to imperfections of the software programs, and do not reflect any compromise in the patient's medical care. Plan discussed with Plan discussed with: Patient IVANMARIANO Campos NP Oct 14, 2024 07:52
[2024-10-14 08:18] LABS: Basophils # (auto) 0 10 ^3/uL (0-0.2); Basophils % (auto) 0.4 % (0.0-2.0); Eosinophils # (auto) 0.2 10 ^3/uL (0-0.8); Eosinophils % (auto) 4.8 % (0.0-7.0); Hematocrit 36.3 % (36.0-46.0); Hemoglobin 12.2 g/dL (12.2-16.2); Lymphocytes % (auto) 40.7 % (10.0-50.0); Mean Corpuscular Hgb Conc. 33.7 g/dL (32.0-36.0); Mean Corpuscular Volume 91.7 fL (80.0-100.0); Monocytes # (auto) 0.3 10 ^3/uL (0-1.3); Monocytes % (auto) 7.2 % (0.0-12.0); Neutrophils # (auto) 2.3 10 ^3/uL (1.6-8.6); Neutrophils % (auto) 46.9 % (37.0-80.0); Nucleated Red Blood Cells % 0.3 %; Platelet Count (auto) 238 10^3/uL (140-450); Red Blood Cells 3.95 10^6/uL (4.0-5.20); Red Cell Distribution Width 12.9 % (11.8-14.3); White Blood Cell 4.9 10^3/uL (4.4-10.8)
[2024-10-14 08:27] LABS: Chloride 107 mmol/L (98-107); Potassium 3.8 mmol/L (3.5-5.1); Sodium 142 mmol/L (136-145)
[2024-10-14 08:28] LABS: Anion Gap 12 (5-15); Calcium 9.3 mg/dL (8.7-10.4); Carbon Dioxide 23 mmol/L (20-31)
[2024-10-14 08:33] LABS: BUN/Creatinine Ratio 8.5 (10.0-20.0)
[2024-10-14 08:34] LABS: Blood Urea Nitrogen 6 mg/dL (9-23); Glucose 117 mg/dL (74-106)
[2024-10-14 09:00] VITALS: BP 123/71; PULSE 78; RESP 16; TEMP 97.7; O2SAT 95
[2024-10-14 13:00] VITALS: BP 101/59; PULSE 72; RESP 16; TEMP 97.8; O2SAT 93
[2024-10-14] MEDS: VANCOMYCIN 500mg/100mL 100 ML IV SCH (14:06)
--- NOTE | 2024-10-14 14:35 | DVHPN2 ---
Reviewed: Care Plan, H&P, Labs, Medications, Previous Orders, Radiology Changes from previous H/P or p: No Changes Musculoskeletal: back pain Objective Vitals Vital Signs Date Time Temp Pulse Resp B/P (MAP) Pulse Ox O2 Delivery O2 Flow Rate FiO2 10/14/24 13:00 97.8 72 16 101/59 (73) 93 97.8 10/14/24 07:47 Room Air* 0 21 Intake/Output Intake and Output 10/14/24 06:59 Intake Total 1835 ml Balance 1835 ml Intake Oral 1260 ml IV Total 575 ml # Voids 3 Medications Current Medications Medications Dose Ordered Sig/Eron Route Start Time Stop Time Status Last Admin Dose Admin Vancomycin HCl 0 ml @ 0 mls/hr UD IV 10/12/24 10:15 Acetaminophen 650 mg Q6HP PRN PO 10/12/24 12:30 Hold Diagnostic Test (Pha) 1 strip ACHS 10/12/24 17:00 10/14/24 11:24 1 STRIP Insulin Human Regular ACHS SC 10/12/24 17:00 10/14/24 11:25 3 UNITS Dextrose 50 ml UD PRN IV 10/12/24 12:30 Clonazepam 0.5 mg TID PO 10/12/24 14:00 10/14/24 05:44 0.5 MG Dicyclomine HCl 10 mg BID PO 10/12/24 22:00 10/14/24 09:34 10 MG Famotidine 20 mg BID PO 10/12/24 22:00 10/14/24 09:34 20 MG Lisinopril 20 mg DAILY PO 10/13/24 10:00 10/14/24 09:34 20 MG Sodium Chloride 1,000 ml @ 60 mls/hr [id number] IV 10/12/24 12:45 10/13/24 22:05 60 MLS/HR Acetaminophen 325 mg Q4HP PRN PO 10/12/24 12:45 Acetaminophen/ Hydrocodone Bitart 1 tab Q4HP PRN PO 10/12/24 12:45 10/14/24 08:19 1 TAB Docusate Sodium 100 mg BIDPRN PRN PO 10/12/24 12:45 Enoxaparin Sodium 40 mg DAILY SC 10/12/24 13:31 10/14/24 09:34 40 MG Vancomycin HCl 0 ml @ 0 mls/hr UD IV 10/12/24 12:45 UNV Piperacillin Sod/ Tazobactam Sod 100 ml @ 25 mls/hr Q8HR IV 10/12/24 22:00 10/14/24 14:06 25 MLS/HR Alendronate Sodium 70 mg QWEEKLY PO 10/12/24 14:00 Vancomycin HCl 100 ml @ 200 mls/hr Q10H IV 10/14/24 14:00 10/14/24 14:06 200 MLS/HR Laboratory Results Laboratory Tests 10/14/24 05:04 Chemistry Test 10/14/24 05:04 Calcium Level 9.3 mg/dL (8.7-10.4) Microbiology Microbiology Date/Time Source Procedure Growth Status 10/13/24 13:25 Blood Blood Culture - Preliminary NO GROWTH AFTER 24 HOURS OF INCUBATION. Resulted Labs and/or images reviewed: Labs reviewed by me, Image(s) reviewed by me Assessment/Plan Assessment/Plan Osteomyelitis LS spine: MRI LS spine possible osteomyelitis, continue Vancomycin Zosyn consult for Dr. Cortes appreciated, ID consult for Dr. Curtis Status post epidural injection 09/12/2024 Diabetes moderate insulin sliding scale Hypertension History of osteoporosis Time spent 65 minutes Advanced care planning time 20 minutes Patient is full code Plan discussed with: Patient My Orders Orders - YAO SUH MD Procedure Category Date Status Time * Infectious Rod[place]- Dr. [facility] 10/14/24 Transmitted Michaela Curtis 14:27 Date of Service: Oct 14, 2024 Billing Provider: YAO SUH MD Common Visit Codes: [id number] INP/OBS CARE(HIGH) YAO SUH MD Oct 14, 2024 14:35
--- NOTE | 2024-10-14 16:04 | DVHCONRES ---
Date Seen: Oct 14, 2024 Resident Creating Document: SARA BHAKTA RESIDENT Referring Physician Stanley Reason for Consultation Osteomyelitis of the lumbar spine History of Present Illness This is a 69-year-old female with past medical history of type 1 diabetes mellitus, hypertension, osteoporosis, chronic back pain who presented to the ED with chief complaint of lower back pain. The patient states that he visited Dr. Heard at the pain management clinic for epidural injection which was done on September 12, 2024. The patient reports that after the shot the next couple of days the pain got progressively worse which caused inability to walk by herself and fiber picker things from the floor. The patient has started using a cane to be able to walk at that time. At that time the patient described the pain as a sharp/shooting pain localized in the lower back that shoots down to the lateral aspect of bilateral thighs. The patient reports that she saw Dr. Cortes on october [id number] and he referred the patient to the ED due to a possible lumbar spine infection saw through imaging. Upon admission to the hospital, CBC and CMP was grossly unremarkable. Blood cultures came back negative. The patient reported generalized weakness and fatigue but denied fever/chills, chest pain, shortness of breath or any other associated symptoms. Patient was started on IV antibiotics vancomycin and Zosyn. Past Medical History Hypertension, type 1 diabetes mellitus, osteoporosis, chronic back pain Past Surgical History Denies Family History: Patient reports no known family medical history. Family History Denies Social History Denies alcohol, drugs or smoking Allergies: Coded Allergies: NO KNOWN ALLERGIES (Unverified , 01/12/15) Home Meds Reported Medications Lisinopril (Lisinopril) 20 Mg Tab, 20 MG PO DAILY, TAB 12/13/21 Famotidine (PEPCID TABLET) 20 Mg Tb, 20 MG PO BID, TAB 12/13/21 Dicyclomine Hcl (BENTYL CAPSULE) 10 Mg Cp, 10 MG PO BID, CAP 12/13/21 Alendronate Sodium (Fosamax) 70 Mg Tab, 70 MG PO QWEEKLY, TAB Take once a week at least 30 minutes before first meal, beverage or medication. 11/10/21 Capsaicin (CAPSAICIN) 0.1 % Cre, 0.1 % EX, CRE 11/10/21 Clonazepam (Klonopin) 0.5 Mg Tab, 0.5 MG PO TID, TAB 11/10/21 Insulin Regular (Human) (Humulin R) 100 Unit/Ml Inj, 100 UNIT IV, INJ 0.05 units/kg 11/10/21 Metformin Hydrochloride (Metformin Hcl) 500 Mg Tab, 500 MG PO BID, TAB 11/10/21 Current Medications Current Medications Medications (Trade) Dose Ordered Sig/Eron Route PRN Reason Start Time Stop Time Status Last Admin Vancomycin HCl 100 ml @ 200 mls/hr Q10H IV 10/14/24 14:00 10/14/24 14:06 Review of Systems ROS Constitutional: Denies weight loss, fever and chills. HEENT: Denies changes in vision and hearing. Respiratory: Denies shortness of breath and cough Cardiovascular: Denies chest discomfort or palpitations GI: Denies abdominal pain, nausea, vomiting and diarrhea. : Denies dysuria and urinary frequency. Musculoskeletal: Patient reports significant lower back pain localized in the mid and lateral aspect of the lower back radiating towards bilateral lateral thighs. Skin: Denies rash and pruritus. Neurological: Denies dizziness, headache, vision or hearing problems Vital Signs Vital Signs Date Time Temp Pulse Resp B/P (MAP) Pulse Ox O2 Delivery O2 Flow Rate FiO2 10/14/24 13:00 97.8 72 16 101/59 (73) 93 97.8 10/14/24 07:47 Room Air* 0 21 Physical Exam Physical Examination General: Patient alert and oriented in person, place and time. Patient foll owing commands. HEENT: Normocephalic, atraumatic, moist mucous membranes Respiratory/pulmonary: Clear lungs bilaterally, vesicular murmurs present in almost all lung gandhi, no associated crackles or wheezes. Cardiovascular: Normal heart sounds S1 and S2 with no associated murmurs Abdomen: Abdomen nondistended, there is no pain to palpation in any of the abdominal quadrants, no palpable masses. Back: Patient has lower back pain in the middle and lateral aspect of the lower back radiating towards bilateral aspects of the lateral thighs. Straight leg raise test was negative. Extremities: There is no peripheral edema present at the lower extremities. Skin: No rashes or pruritus, there is no sacral edema present at this time. Neurological: Intact cranial nerves with no focal neurologic deficits Labs/Diagnostic Data Labs Test 10/14/24 11:04 10/14/24 10:58 10/14/24 05:04 10/13/24 05:39 Range/Units Vancomycin Level Trough 15.3 H 5-10 ug/mL POC Glucose 179 H 70-106 mg/dl White Blood Count 4.9 4.4-10.8 10^3/uL Red Blood Count 3.95 L 4.0-5.20 10^6/uL Hemoglobin 12.2 12.2-16.2 g/dL Hematocrit 36.3 36.0-46.0 % Mean Corpuscular Volume 91.7 80.0-100.0 fL Mean Corpuscular Hemoglobin 31.0 28.0-32.0 pg Mean Corpuscular Hemoglobin Concent 33.7 32.0-36.0 g/dL Red Cell Distribution Width 12.9 11.8-14.3 % Platelet Count 238 140-450 10^3/uL Mean Platelet Volume 8.3 6.9-10.8 fL Neutrophils (%) (Auto) 46.9 37.0-80.0 % Lymphocytes (%) (Auto) 40.7 10.0-50.0 % Monocytes (%) (Auto) 7.2 0.0-12.0 % Eosinophils (%) (Auto) 4.8 0.0-7.0 % Basophils (%) (Auto) 0.4 0.0-2.0 % Neutrophils # (Auto) 2.3 1.6-8.6 10 ^3/uL Lymphocytes # (Auto) 2.0 0.4-5.4 10 ^3/uL Monocytes # (Auto) 0.3 0-1.3 10 ^3/uL Eosinophils # (Auto) 0.2 0-0.8 10 ^3/uL Basophils # (Auto) 0 0-0.2 10 ^3/uL Nucleated Red Blood Cells 0.3 % Sodium Level 142 136-145 mmol/L Potassium Level 3.8 3.5-5.1 mmol/L Chloride Level 107 98-107 mmol/L Carbon Dioxide Level 23 20-31 mmol/L Anion Gap 12 5-15 Blood Urea Nitrogen 6 L 9-23 mg/dL Creatinine 0.71 0.550-1.02 mg/dL Glomerular Filtration Rate Calc 93 >90 mL/min BUN/Creatinine Ratio 8.5 L 10.0-20.0 Serum Glucose 117 H 74-106 mg/dL Calcium Level 9.3 8.7-10.4 mg/dL Total Bilirubin 0.4 0.2-1.0 mg/dL Aspartate Amino Transferase (AST) 26 <34 U/L Alanine Aminotransferase (ALT) 18 7-40 U/L Alkaline Phosphatase 79 46-116 U/L Total Protein 6.3 5.7-8.2 g/dL Albumin 4.1 3.2-4.8 g/dL Random Vancomycin Level 10.7 H 5-10 ug/mL Microbiology Date/Time Source Procedure Growth Status 10/13/24 13:25 Blood Blood Culture - Preliminary NO GROWTH AFTER 24 HOURS OF INCUBATION. Resulted Assessment Assessment/Plan Acute lower back pain likely due to lumbar spine infection Possible osteomyelitis of the lumbar spine Plan -MRI of the lumbar spine showed hyperintense marrow spinal of the L5 greater than L4 and S1 vertebral bodies with minimal L4-L5 anterior disc edema associated with minimal cortical inferior L4 endplate moderate bilateral neural irregularity. Possible atypical spinal osteomyelitis versus metastasis -patient denies fever/chills, no leukocytosis, no criteria for SIRS -blood cultures came back negative -continue IV vancomycin -Discontinue IV zosyn -Start IV ceftriaxone 2gr Q12 Goals of care discussed with the patient at bedside for > 35min, FULL CODE Plan discussed with Dr. Curtis Plan discussed with: Patient SARA BHAKTA RESIDENT Oct 14, 2024 16:03
[2024-10-14 17:00] VITALS: BP 107/57; PULSE 78; RESP 16; TEMP 98.2; O2SAT 97
[2024-10-14] MEDS: cefTRIAXone 2GM/50ML D5W 50 ML IV SCH (19:58)
[2024-10-14 21:00] VITALS: BP 114/70; PULSE 82; RESP 16; TEMP 97.6; O2SAT 95
[2024-10-14] MEDS: ACETAMINOPHEN 325 MG TAB PO PRN (21:18)
[2024-10-15] VITALS (7 sets, daily range): BP systolic 112–131; BP diastolic 58–77; PULSE 70–101; RESP 16–18; TEMP 97.5–98.1; O2SAT 94–98
[2024-10-15] MEDS: VANCOMYCIN 500mg/100mL 100 ML IV SCH (01:28)
[2024-10-15] MEDS: FAMOTIDINE 20 MG TAB PO SCH (08:32)
--- NOTE | 2024-10-15 12:10 | DVHPN2 ---
Reviewed: Care Plan, H&P, Labs, Medications, Previous Orders, Radiology Changes from previous H/P or p: No Changes Musculoskeletal: back pain Objective Vitals Vital Signs Date Time Temp Pulse Resp B/P (MAP) Pulse Ox O2 Delivery O2 Flow Rate FiO2 10/15/24 08:59 98.1 76 16 117/58 (77) 97 98.1 10/15/24 08:00 Room Air* 0 21 Intake/Output Intake and Output 10/15/24 07:00 Intake Total 1040 ml Balance 1040 ml Intake Oral 890 ml IV Total 150 ml # Voids 4 Medications Current Medications Medications Dose Ordered Sig/Eron Route Start Time Stop Time Status Last Admin Dose Admin Vancomycin HCl 0 ml @ 0 mls/hr UD IV 10/12/24 10:15 Acetaminophen 650 mg Q6HP PRN PO 10/12/24 12:30 Hold Diagnostic Test (Pha) 1 strip ACHS 10/12/24 17:00 10/15/24 06:21 1 STRIP Insulin Human Regular ACHS SC 10/12/24 17:00 10/15/24 06:20 2 UNITS Dextrose 50 ml UD PRN IV 10/12/24 12:30 Clonazepam 0.5 mg TID PO 10/12/24 14:00 10/15/24 05:38 0.5 MG Dicyclomine HCl 10 mg BID PO 10/12/24 22:00 10/15/24 08:31 10 MG Lisinopril 20 mg DAILY PO 10/13/24 10:00 10/15/24 08:32 20 MG Sodium Chloride 1,000 ml @ 60 mls/hr [id number] IV 10/12/24 12:45 10/15/24 07:25 60 MLS/HR Acetaminophen 325 mg Q4HP PRN PO 10/12/24 12:45 10/14/24 21:18 325 MG Acetaminophen/ Hydrocodone Bitart 1 tab Q4HP PRN PO 10/12/24 12:45 10/15/24 08:32 1 TAB Docusate Sodium 100 mg BIDPRN PRN PO 10/12/24 12:45 Enoxaparin Sodium 40 mg DAILY SC 10/12/24 13:31 10/15/24 08:36 40 MG Vancomycin HCl 0 ml @ 0 mls/hr UD IV 10/12/24 12:45 UNV Alendronate Sodium 70 mg QWEEKLY PO 10/12/24 14:00 Ceftriaxone Sodium/Dextrose 50 ml @ 50 mls/hr Q12H IV 10/14/24 20:00 10/15/24 08:32 50 MLS/HR Famotidine 20 mg DAILY PO 10/15/24 10:00 10/15/24 08:32 20 MG Vancomycin HCl 100 ml @ 200 mls/hr Q10H IV 10/15/24 01:30 10/15/24 01:28 200 MLS/HR Cyclobenzaprine HCl 5 mg TID PO 10/15/24 14:00 Laboratory Results Laboratory Tests 10/14/24 05:04 10/15/24 05:38 Microbiology Microbiology Date/Time Source Procedure Growth Status 10/13/24 13:25 Blood Blood Culture - Preliminary NO GROWTH AFTER 24 HOURS OF INCUBATION. Resulted Labs and/or images reviewed: Labs reviewed by me, Image(s) reviewed by me Assessment/Plan Assessment/Plan Acute Osteomyelitis lumbar spine by MRI: Spine surgeon Dr. Cortes advised no surgery needed, ID consult by Dr. Curtis appreciated, advised vancomycin 1 g IV daily and Rocephin 2 g IV daily for six weeks Status post epidural injection 09/12/2024 Severe bilateral neural foraminal stenosis L4-5 Diabetes moderate insulin sliding scale Hypertension History of osteoporosis Time spent 55 minutes Advanced care planning time 20 minutes Patient is full code PICC line ordered Plan discussed with: Patient My Orders Orders - YAO SUH MD Procedure Category Date Status Time * Infectious [place]- Dr. [facility] 10/14/24 Transmitted Michaela Curtis 14:27 Date of Service: Oct 15, 2024 Billing Provider: YAO SUH MD Common Visit Codes: [id number] INP/OBS CARE(HIGH) YAO SUH MD Oct 15, 2024 12:10
[2024-10-15] MEDS: CYCLOBENZAPRINE HCL 10 MG TAB PO SCH (14:13)
--- NOTE | 2024-10-15 15:55 | DVHPNRES ---
Progress Note Date Seen: Oct 15, 2024 Resident Creating Document: SARA BHAKTA RESIDENT Has the PT tested + for MRSA If YES, has PT been informed?: No Medical Necessity Reason Pt with a Central, PICC or Fol: No Subjective Review of Systems Patient seen and examined at bedside. The patient is still complaining of lower back pain at the mid region rated as a 6/10 on the pain scale. The patient states that she has been able to walk around with less difficulty and denies fever/chills, shortness of breath, tiredness, weakness or any other associated symptoms. Yesterday we will discontinue IV Zosyn and started the patient on IV ceftriaxone 2 g q.12 and continued vancomycin. We will continue the patient on IV vancomycin and ceftriaxone at current dosage. ROS Constitutional: Denies weight loss, fever and chills. HEENT: Denies changes in vision and hearing. Respiratory: Denies shortness of breath and cough Cardiovascular: Denies chest discomfort or palpitations GI: Denies abdominal pain, nausea, vomiting and diarrhea. : Denies dysuria and urinary frequency. Musculoskeletal: Still reports lower back pain in the mid region rated as 6/10 on the pain scale Skin: Denies rash and pruritus. Neurological: Denies dizziness, headache, vision or hearing problems Objective vital signs Vital Sign Date Time Temp Pulse Resp B/P (MAP) Pulse Ox O2 Delivery O2 Flow Rate FiO2 10/15/24 13:00 97.9 70 18 112/61 (78) 96 97.9 10/15/24 08:00 Room Air* 0 21 Total Intake and Output 10/14/24 10/14/24 10/15/24 15:00 23:00 07:00 Intake Total 290 ml 550 ml 200 ml Balance 290 ml 550 ml 200 ml medications Current Medications Medications Dose Ordered Sig/Eron Route Start Time Stop Time Status Last Admin Dose Admin Vancomycin HCl 0 ml @ 0 mls/hr UD IV 10/12/24 10:15 Acetaminophen 650 mg Q6HP PRN PO 10/12/24 12:30 Hold Diagnostic Test (Pha) 1 strip ACHS 10/12/24 17:00 10/15/24 12:59 1 STRIP Insulin Human Regular ACHS SC 10/12/24 17:00 10/15/24 13:04 4 UNITS Dextrose 50 ml UD PRN IV 10/12/24 12:30 Clonazepam 0.5 mg TID PO 10/12/24 14:00 10/15/24 14:13 0.5 MG Dicyclomine HCl 10 mg BID PO 10/12/24 22:00 10/15/24 08:31 10 MG Lisinopril 20 mg DAILY PO 10/13/24 10:00 10/15/24 08:32 20 MG Sodium Chloride 1,000 ml @ 60 mls/hr [id number] IV 10/12/24 12:45 10/15/24 07:25 60 MLS/HR Acetaminophen 325 mg Q4HP PRN PO 10/12/24 12:45 10/14/24 21:18 325 MG Acetaminophen/ Hydrocodone Bitart 1 tab Q4HP PRN PO 10/12/24 12:45 10/15/24 08:32 1 TAB Docusate Sodium 100 mg BIDPRN PRN PO 10/12/24 12:45 Enoxaparin Sodium 40 mg DAILY SC 10/12/24 13:31 10/15/24 08:36 40 MG Vancomycin HCl 0 ml @ 0 mls/hr UD IV 10/12/24 12:45 UNV Alendronate Sodium 70 mg QWEEKLY PO 10/12/24 14:00 Ceftriaxone Sodium/Dextrose 50 ml @ 50 mls/hr Q12H IV 10/14/24 20:00 10/15/24 08:32 50 MLS/HR Famotidine 20 mg DAILY PO 10/15/24 10:00 10/15/24 08:32 20 MG Vancomycin HCl 100 ml @ 200 mls/hr Q10H IV 10/15/24 01:30 10/15/24 12:58 200 MLS/HR Cyclobenzaprine HCl 5 mg TID PO 10/15/24 14:00 10/15/24 14:13 5 MG Examination Physical Examination General: Patient alert and oriented in person, place and time. Patient following commands. HEENT: Normocephalic, atraumatic, moist mucous membranes Respiratory/pulmonary: Clear lungs bilaterally, vesicular murmurs present in almost all lung gandhi, no associated crackles or wheezes. Cardiovascular: Normal heart sounds S1 and S2 with no associated murmurs Abdomen: Abdomen nondistended, there is no pain to palpation in any of the abdominal quadrants, no palpable masses. Back: Patient has lower back pain in the middle and lateral aspect of the lower back radiating towards bilateral aspects of the lateral thighs. Straight leg raise test was negative. Extremities: There is no peripheral edema present at the lower extremities. Skin: No rashes or pruritus, there is no sacral edema present at this time. Neurological: Intact cranial nerves with no focal neurologic deficits laboratory and microbiology Laboratory Tests 10/15/24 05:38 10/14/24 05:04 Test 10/14/24 05:04 Range/Units Serum Glucose 117 H 74-106 mg/dL Microbiology Date/Time Source Procedure Growth Status 10/13/24 13:25 Blood Blood Culture - Preliminary NO GROWTH AFTER 48 HOURS OF INCUBATION. Resulted Problem List/Assessment/Plan Problem List/Assessment/Plan Assessment/Plan Acute lower back pain likely due to lumbar spine infection Possible osteomyelitis of the lumbar spine Primary hypertension Type 1 diabetes mellitus Osteoporosis Chronic back pain Plan -MRI of the lumbar spine showed hyperintense marrow spinal of the L5 greater than L4 and S1 vertebral bodies with minimal L4-L5 anterior disc edema associated with minimal cortical inferior L4 endplate moderate bilateral neural irregularity. Possible atypical spinal osteomyelitis versus metastasis -patient denies fever/chills, no leukocytosis, no criteria for SIRS -blood cultures came back negative -continue IV vancomycin -continue IV ceftriaxone 2gr Q12 -Plan Midline with vancomycin and ceftriaxone upon discharge Goals of care discussed with the patient at bedside for > 35min, FULL CODE Plan discussed with Dr. Curtis Plan discussed with: Patient My Orders My Orders Orders - SARA BHAKTA Procedure Category Date Status Time Ceftriaxone 2gm/50ml PHA 10/14/24 In Process D5w (Rocephin 2gm/5 20:00 SARA BHAKTA RESIDENT Oct 15, 2024 15:54
[2024-10-16 01:00] VITALS: BP 123/67; PULSE 82; RESP 17; TEMP 98.5; O2SAT 95
[2024-10-16 05:00] VITALS: BP 114/59; PULSE 83; RESP 17; TEMP 98.4; O2SAT 91
[2024-10-16 06:56] LABS: INR 1.02 (0.9-1.15); Partial Thromboplastin Time 28.9 SEC (24.5-34.5); Prothrombin Time 10.8 sec (9.3-11.8)
[2024-10-16 08:51] VITALS: BP 100/71; PULSE 136; RESP 20; TEMP 96.2; O2SAT 98
--- NOTE | 2024-10-16 09:07 | DVH ---
Exam: CT CT AB PEL WO CON-NO ORAL OR IV History: Possible spinal Mets by MRI LS spine Comparison Study: CT ABD PELVIS WO CONTRAST on DOS: 08/28/21. MRI lumbar spine 10/13/24 TECHNIQUE: Multidetector CT of the abdomen was performed from lung bases to pubic symphysis. Imaging was performed without IV contrast. Axial, coronal and sagittal multiplanar reformats were obtained fr om the axial data set by the technologist. Radiation dose : 1. Abdomen/Pelvis: CTDIvol 6.9 mGy, DLP 337.1 mGy*cm. FINDINGS: Evaluation of solid organs is limited due to lack of intravenous contrast use. Findings: Lung Bases: No acute or significant lung base finding. Normal heart size. No pleural or pericardial effusion. Liver: The liver is normal in size. No focal lesions. Gallbladder and biliary Tree: Unremarkable Spleen: Unremarkable Pancreas: The pancreas is grossly normal in appearance. Adrenal Glands: Unremarkable Kidneys: Kidneys are grossly normal without calculi or hydronephrosis. Bladder: Grossly unremarkable for degree of distention. Bowel: The stomach is grossly normal in appearance. Small bowel and colon are normal in caliber and d istribution. Normal appendix is visualized in the right lower quadrant without findings of appendici tis. Ascites: Absent Lymphadenopathy: No mesenteric, retroperitoneal or periportal lymphadenopathy. Abdominal wall and Mesentery: Unremarkable. Vasculature: The visualized abdominal aorta is normal in size and caliber. Evaluation of abdominal a nd pelvic vessels is limited due to lack of intravenous contrast. Pelvic Organs: Unremarkable Musculoskeletal: Mild sclerotic and erosive changes at the L4 inferior end plate and at L5-S1, new fr om 08/28/2021 and better evaluated on recent MRI lumbar spine. There is mild soft tissue infiltration around the L5-S1 disc space. Soft tissues: Unremarkable IMPRESSION: 1. Mild sclerotic and erosive changes at the L4 inferior endplate and at L5-S1, new from 08/28/21 and better evaluated on recent MRI lumbar spine. 2. No other acute findings in the abdomen / pelvis. 3. Radiation optimization: All CT scans at this facility use at least one of these dose optimization techniques: automated exposure control mA and/or kV adjustment per patient size (includes targeted e xams where dose is matched to clinical indication) or iterative reconstruction.
--- NOTE | 2024-10-16 11:16 | DVHPN2 ---
Reviewed: Care Plan, H&P, Labs, Medications, Previous Orders, Radiology Changes from previous H/P or p: No Changes Musculoskeletal: back pain Objective Vitals Vital Signs Date Time Temp Pulse Resp B/P (MAP) Pulse Ox O2 Delivery O2 Flow Rate FiO2 10/16/24 09:11 100/71 10/16/24 08:51 96.2 136 20 98 96.2 10/16/24 08:00 Room Air* 0 21 Intake/Output Intake and Output 10/16/24 07:00 Intake Total 1340 ml Balance 1340 ml Intake Oral 1340 ml # Voids 5 # Bowel Movements 2 Medications Current Medications Medications Dose Ordered Sig/Eron Route Start Time Stop Time Status Last Admin Dose Admin Vancomycin HCl 0 ml @ 0 mls/hr UD IV 10/12/24 10:15 Acetaminophen 650 mg Q6HP PRN PO 10/12/24 12:30 Hold Diagnostic Test (Pha) 1 strip ACHS 10/12/24 17:00 10/16/24 05:59 1 STRIP Insulin Human Regular ACHS SC 10/12/24 17:00 10/16/24 06:22 2 UNITS Dextrose 50 ml UD PRN IV 10/12/24 12:30 Clonazepam 0.5 mg TID PO 10/12/24 14:00 10/16/24 05:58 0.5 MG Dicyclomine HCl 10 mg BID PO 10/12/24 22:00 10/16/24 09:10 10 MG Lisinopril 20 mg DAILY PO 10/13/24 10:00 10/16/24 09:11 20 MG Sodium Chloride 1,000 ml @ 60 mls/hr [id number] IV 10/12/24 12:45 10/15/24 07:25 60 MLS/HR Acetaminophen 325 mg Q4HP PRN PO 10/12/24 12:45 10/14/24 21:18 325 MG Acetaminophen/ Hydrocodone Bitart 1 tab Q4HP PRN PO 10/12/24 12:45 10/15/24 08:32 1 TAB Docusate Sodium 100 mg BIDPRN PRN PO 10/12/24 12:45 Enoxaparin Sodium 40 mg DAILY SC 10/12/24 13:31 10/16/24 09:09 40 MG Vancomycin HCl 0 ml @ 0 mls/hr UD IV 10/12/24 12:45 UNV Alendronate Sodium 70 mg QWEEKLY PO 10/12/24 14:00 Ceftriaxone Sodium/Dextrose 50 ml @ 50 mls/hr Q12H IV 10/14/24 20:00 10/15/24 08:32 50 MLS/HR Famotidine 20 mg DAILY PO 10/15/24 10:00 10/16/24 09:12 20 MG Vancomycin HCl 100 ml @ 200 mls/hr Q10H IV 10/15/24 01:30 10/15/24 12:58 200 MLS/HR Cyclobenzaprine HCl 5 mg TID PO 10/15/24 14:00 10/16/24 05:58 5 MG Vancomycin HCl 200 ml @ 200 mls/hr Q12H IV 10/16/24 11:00 UNV Laboratory Results Laboratory Tests 10/14/24 05:04 10/16/24 06:01 Coagulation Test 10/16/24 06:01 Prothrombin Time 10.8 sec (9.3-11.8) Prothrombin Time INR 1.02 (0.9-1.15) Activated Partial Thromboplast Time 28.9 SEC (24.5-34.5) Microbiology Microbiology Date/Time Source Procedure Growth Status 10/13/24 13:25 Blood Blood Culture - Preliminary NO GROWTH AFTER 48 HOURS OF INCUBATION. Resulted Labs and/or images reviewed: Labs reviewed by me, Image(s) reviewed by me Assessment/Plan Assessment/Plan Acute Osteomyelitis lumbar spine by MRI: Spine surgeon Dr. Cortes advised no surgery needed, ID consult by Dr. 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 Diabetes moderate insulin sliding scale Hypertension History of osteoporosis Son Cosmo [phone] at bedside and agreeable for discharge to [facility] for IV antibiotics physical therapy and pain management Plan discussed with: Patient My Orders Orders - YAO SUH MD Procedure Category Date Status Time * Picc Line Consult CONS 10/15/24 Transmitted 12:10 Ct Ab Pel Wo Con-No CT 10/16/24 Resulted Oral Or Iv 08:16 Covid19 Antigen Adri LAB 10/16/24 Logged Communication Order ORDERS 10/16/24 Transmitted 11:11 * Manager Sound CONS 10/16/24 Verified Consult Date of Service: Oct 16, 2024 Billing Provider: YAO SUH MD Common Visit Codes: [id number] INP/OBS CARE(HIGH) YAO SUH MD Oct 16, 2024 11:16
--- NOTE | 2024-10-16 11:20 | DVHPNRES ---
Progress Note Date Seen: Oct 16, 2024 Resident Creating Document: SARA BHAKTA RESIDENT Has the PT tested + for MRSA If YES, has PT been informed?: No Medical Necessity Reason Pt with a Central, PICC or Fol: No Subjective Review of Systems Patient seen and examined at bedside. Patient is currently walking without major difficulties. Patient still reports lower back pain in the middle of the spine and laterally on both sides of the lower back. Otherwise patient denies fever/chills, palpitations, shortness of breath, chest pain or any other additional symptoms. Patient might be discharged to SNF to [facility] after placing a midline today. We will recommend to continue IV vancomycin and ceftriaxone on the SNF for 6 weeks. ROS Constitutional: Denies weight loss, fever and chills. HEENT: Denies changes in vision and hearing. Respiratory: Denies shortness of breath and cough Cardiovascular: Denies chest discomfort or palpitations GI: Denies abdominal pain, nausea, vomiting and diarrhea. : Denies dysuria and urinary frequency. Musculoskeletal: Still reports lower back pain in the middle of the spine and on both sides of the lower back. Skin: Denies rash and pruritus. Neurological: Denies dizziness, headache, vision or hearing problems Objective vital signs Vital Sign Date Time Temp Pulse Resp B/P (MAP) Pulse Ox O2 Delivery O2 Flow Rate FiO2 10/16/24 09:11 100/71 10/16/24 08:51 96.2 136 20 98 96.2 10/16/24 08:00 Room Air* 0 21 Total Intake and Output 10/15/24 10/15/24 10/16/24 15:00 23:00 07:00 Intake Total 240 ml 700 ml 400 ml Balance 240 ml 700 ml 400 ml medications Current Medications Medications Dose Ordered Sig/Eron Route Start Time Stop Time Status Last Admin Dose Admin Vancomycin HCl 0 ml @ 0 mls/hr UD IV 10/12/24 10:15 Acetaminophen 650 mg Q6HP PRN PO 10/12/24 12:30 Hold Diagnostic Test (Pha) 1 strip ACHS 10/12/24 17:00 10/16/24 05:59 1 STRIP Insulin Human Regular ACHS SC 10/12/24 17:00 10/16/24 06:22 2 UNITS Dextrose 50 ml UD PRN IV 10/12/24 12:30 Clonazepam 0.5 mg TID PO 10/12/24 14:00 10/16/24 05:58 0.5 MG Dicyclomine HCl 10 mg BID PO 10/12/24 22:00 10/16/24 09:10 10 MG Lisinopril 20 mg DAILY PO 10/13/24 10:00 10/16/24 09:11 20 MG Sodium Chloride 1,000 ml @ 60 mls/hr [id number] IV 10/12/24 12:45 10/15/24 07:25 60 MLS/HR Acetaminophen 325 mg Q4HP PRN PO 10/12/24 12:45 10/14/24 21:18 325 MG Acetaminophen/ Hydrocodone Bitart 1 tab Q4HP PRN PO 10/12/24 12:45 10/15/24 08:32 1 TAB Docusate Sodium 100 mg BIDPRN PRN PO 10/12/24 12:45 Enoxaparin Sodium 40 mg DAILY SC 10/12/24 13:31 10/16/24 09:09 40 MG Vancomycin HCl 0 ml @ 0 mls/hr UD IV 10/12/24 12:45 UNV Alendronate Sodium 70 mg QWEEKLY PO 10/12/24 14:00 Ceftriaxone Sodium/Dextrose 50 ml @ 50 mls/hr Q12H IV 10/14/24 20:00 10/15/24 08:32 50 MLS/HR Famotidine 20 mg DAILY PO 10/15/24 10:00 10/16/24 09:12 20 MG Vancomycin HCl 100 ml @ 200 mls/hr Q10H IV 10/15/24 01:30 10/15/24 12:58 200 MLS/HR Cyclobenzaprine HCl 5 mg TID PO 10/15/24 14:00 10/16/24 05:58 5 MG Vancomycin HCl 200 ml @ 200 mls/hr Q12H IV 10/16/24 11:00 UNV Examination Physical Examination General: Patient alert and oriented in person, place and time. Patient following commands. HEENT: Normocephalic, atraumatic, moist mucous membranes Respiratory/pulmonary: Clear lungs bilaterally, vesicular murmurs present in almost all lung gandhi, no associated crackles or wheezes. Cardiovascular: Normal heart sounds S1 and S2 with no associated murmurs Abdomen: Abdomen nondistended, there is no pain to palpation in any of the abdominal quadrants, no palpable masses. Back: Patient has lower back pain in the middle and lateral aspect of the lower back radiating towards bilateral aspects of the lateral thighs. Straight leg raise test was negative. Extremities: There is no peripheral edema present at the lower extremities. Skin: No rashes or pruritus, there is no sacral edema present at this time. Neurological: Intact cranial nerves with no focal neurologic deficits laboratory and microbiology Laboratory Tests 10/16/24 06:01 10/14/24 05:04 Test 10/14/24 05:04 Range/Units Serum Glucose 117 H 74-106 mg/dL Microbiology Date/Time Source Procedure Growth Status 10/13/24 13:25 Blood Blood Culture - Preliminary NO GROWTH AFTER 48 HOURS OF INCUBATION. Resulted Problem List/Assessment/Plan Problem List/Assessment/Plan Assessment/Plan Acute lower back pain likely due to lumbar spine infection Possible osteomyelitis of the lumbar spine Primary hypertension Type 1 diabetes mellitus Osteoporosis Chronic back pain Plan -MRI of the lumbar spine showed hyperintense marrow spinal of the L5 greater than L4 and S1 vertebral bodies with minimal L4-L5 anterior disc edema associated with minimal cortical inferior L4 endplate moderate bilateral neural irregularity. Possible atypical spinal osteomyelitis versus metastasis -patient denies fever/chills, no leukocytosis, no criteria for SIRS -blood cultures came back negative -continue IV vancomycin -continue IV ceftriaxone 2gr Q12 -Midline will be placed today -patient will be discharged to [facility] with six weeks of IV ceftriaxone and vancomycin Goals of care discussed with the patient at bedside for > 35min, FULL CODE Plan discussed with Dr. Curtis Plan discussed with: Patient SARA BHAKTA RESIDENT Oct 16, 2024 11:20
--- NOTE | 2024-10-16 11:21 | DVHDS2 ---
Discharge Summary Date of Admission Oct 12, 2024 at 12:20 Date of Discharge: Oct 16, 2024 Admitting Diagnosis Severe low back pain Wounds: None Labs/Diagnostic Data: Laboratory Results Test 10/16/24 06:02 10/16/24 06:01 10/15/24 21:20 10/14/24 05:04 POC Glucose 145 mg/dl (70-106) Prothrombin Time 10.8 sec (9.3-11.8) Prothrombin Time INR 1.02 (0.9-1.15) Activated Partial Thromboplast Time 28.9 SEC (24.5-34.5) Creatinine 0.67 mg/dL (0.550-1.02) Glomerular Filtration Rate Calc 95 mL/min (>90) Vancomycin Level Trough 12.0 ug/mL (5-10) White Blood Count 4.9 10^3/uL (4.4-10.8) Red Blood Count 3.95 10^6/uL (4.0-5.20) Hemoglobin 12.2 g/dL (12.2-16.2) Hematocrit 36.3 % (36.0-46.0) Mean Corpuscular Volume 91.7 fL (80.0-100.0) Mean Corpuscular Hemoglobin 31.0 pg (28.0-32.0) Mean Corpuscular Hemoglobin Concent 33.7 g/dL (32.0-36.0) Red Cell Distribution Width 12.9 % (11.8-14.3) Platelet Count 238 10^3/uL (140-450) Mean Platelet Volume 8.3 fL (6.9-10.8) Neutrophils (%) (Auto) 46.9 % (37.0-80.0) Lymphocytes (%) (Auto) 40.7 % (10.0-50.0) Monocytes (%) (Auto) 7.2 % (0.0-12.0) Eosinophils (%) (Auto) 4.8 % (0.0-7.0) Basophils (%) (Auto) 0.4 % (0.0-2.0) Neutrophils # (Auto) 2.3 10 ^3/uL (1.6-8.6) Lymphocytes # (Auto) 2.0 10 ^3/uL (0.4-5.4) Monocytes # (Auto) 0.3 10 ^3/uL (0-1.3) Eosinophils # (Auto) 0.2 10 ^3/uL (0-0.8) Basophils # (Auto) 0 10 ^3/uL (0-0.2) Nucleated Red Blood Cells 0.3 % Sodium Level 142 mmol/L (136-145) Potassium Level 3.8 mmol/L (3.5-5.1) Chloride Level 107 mmol/L (98-107) Carbon Dioxide Level 23 mmol/L (20-31) Anion Gap 12 (5-15) Blood Urea Nitrogen 6 mg/dL (9-23) BUN/Creatinine Ratio 8.5 (10.0-20.0) Serum Glucose 117 mg/dL (74-106) Hemoglobin A1c 7.2 % A1C (<5.7) Calcium Level 9.3 mg/dL (8.7-10.4) Test 10/13/24 05:39 Total Bilirubin 0.4 mg/dL (0.2-1.0) Aspartate Amino Transferase (AST) 26 U/L (<34) Alanine Aminotransferase (ALT) 18 U/L (7-40) Alkaline Phosphatase 79 U/L (46-116) Total Protein 6.3 g/dL (5.7-8.2) Albumin 4.1 g/dL (3.2-4.8) Random Vancomycin Level 10.7 ug/mL (5-10) Other Laboratory Tests 10/16/24 06:01 10/14/24 05:04 Brief Hx & Hospital Course: 69-year-old female with a history of hypertension osteoporosis had epidural injection by Dr. Martell on 09/12/2024. Subsequently developed severe pain and got admitted to the hospital here. Seen by spine surgeon Dr. Cortes. Advised no surgery needed MRI showed osteomyelitis of LS spine. ID Dr Dr. Feliz was consulted and was placed on vancomycin 1 g IV daily and Rocephin 2 g IV q.12h for six weeks to be continued in the [facility] facility. Patient also has severe bilateral neural foraminal stenosis at L4 and five she received physical therapy while in the hospital. Discussed with the patient and patient's son Laureano melissa and agreeable for [facility] facility placement for IV antibiotics physical therapy and pain management Consults/Reason for consult Spine surgeon Dr. Cortes ID Dr. Laureano Curtis Operations or Procedures MRI lumbar sacral spine Condition at Discharge: Fair Final Diagnosis/Problems List Acute Osteomyelitis lumbar spine by MRI: Spine surgeon Dr. Cortes advised no surgery needed, ID consult by Dr. 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 Diabetes moderate insulin sliding scale Hypertension History of osteoporosis Discharge Disposition: Nursing Home Facility Discharge Instruct/Medications Diet: Cardiac 2g Na,low cholest Activity: Light activity Follow Up/Referral: Follow up with the [facility] Medications: Vancomycin 1 g IV daily for six weeks Rocephin 2 g IV q.12h for six weeks see list for other meds 39 (Time taken for discharge summary 39 minutes) Discharge Statement: "Patient was advised to return to the ER or call 911 if any headaches, dizziness, shortness of breath, chest pain, abdominal pain, bleeding, fevers, or worsening of medical condition. Patient was counseled about treatment plan, medications, possible side effects, patientverbalized understanding. All questions were answered to the best of my ability. This discharge took greater then 30 minutes in planning, reviewing documentation, counseling the patient, and discussing with other team members." ASSESSMENT ASSESSMENT Hospital Course Improved marginally Assessment Acute Osteomyelitis lumbar spine by MRI: Spine surgeon Dr. Cortes advised no surgery needed, ID consult by Dr. 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
[2024-10-16] MEDS: VANCOMYCIN 1GM/200ML PM 200 ML IV SCH (12:19)
[2024-10-16 12:55] VITALS: BP 118/66; PULSE 108; RESP 21; TEMP 97.5; O2SAT 97
[2024-10-16 13:00] LABS: Rapid Influenza A Negative (Negative); Rapid Influenza B Negative (Negative)
[2024-10-16 13:04] LABS: COVID19 ANTIGEN SOFIA FIA NEGATIVE (NEGATIVE)
[2024-10-16] MEDS ORDERED: LIDOCAINE 1% (LOCAL ANESTH.) PF 5ml SDV ID ONE (13:30)
[2024-10-16 15:23] VITALS: BP 100/71; TEMP 36.4
[2024-10-16 16:31] VITALS: BP 105/65; PULSE 88; RESP 17; TEMP 97.6; O2SAT 97
[2024-10-16] MEDS ORDERED: SODIUM CHLOR 0.9% PF (SALINE LOCK) 10ML VIAL/SYR IV SCH (22:00)
== END 2024-10-16 16:37 | disposition home or self-care (01) | DRG 541 ==
LOC: ER 09:42 → OVERFLOW 12:20 → WEST WING 18:55
PROVIDERS: ADMIT Family Medicine; ATTEND Family Medicine
DX: M46.26 Osteomyelitis of vertebra, lumbar region (principal); M48.061 Spinal stenosis, lumbar region without neurogenic claudication; E11.69 Type 2 diabetes mellitus with other specified complication; Z20.822 Contact with and (suspected) exposure to COVID-19; M81.0 Age-related osteoporosis without current pathological fracture; I10 Essential (primary) hypertension; Z79.899 Other long term (current) drug therapy
CPT/HCPCS: 36415; 36569; 72148; 74176; 76937; 80048; 80053; 80202; 82565; 82962; 83036; 85025; 85610; 85730; 87040; 87426; 87804; 96365; 96367; G0378; J1815; J2543

== ENCOUNTER 2025-01-29 16:57 | Inpatient (IN) | payer MEDICARE, MEDICAID ==
[~2025-01-29] VITALS: Ht 160 cm; Wt 61.9 kg
--- NOTE | 2025-01-29 17:47 | ED.PDOC ---
Back pain HPI HPI Comments This is a 69 year old female presenting to the ED with chief complaint of back pain. Patient reports that she had a previous infection to her spine caused by an epidural back in July, staying in a hospital for 2 months with treatment provided. Patient relays that she started to experience worsening back pain over time since then and a recent MRI performed on 01/10 showed a return of her infection to her back. Patient states she was advised by her pain management doctor to come into the ED for further antibiotic treatment. Patient denies any numbness, weakness, tingling, fever, chills, or injury. Chief Complaint: Back Pain Time Seen by MD: 17:40 Primary Care Provider: DM Lanier Notes: Nurses Notes, Medications, Allergies Allergies: Coded Allergies: NO KNOWN ALLERGIES (Unverified , 01/12/15) Home Meds Reported Medications Lisinopril (Lisinopril) 20 Mg Tab, 20 MG PO DAILY, TAB 12/13/21 Famotidine (PEPCID TABLET) 20 Mg Tb, 20 MG PO BID, TAB 12/13/21 Dicyclomine Hcl (BENTYL CAPSULE) 10 Mg Cp, 10 MG PO BID, CAP 12/13/21 Alendronate Sodium (Fosamax) 70 Mg Tab, 70 MG PO QWEEKLY, TAB Take once a week at least 30 minutes before first meal, beverage or medication. 11/10/21 Capsaicin (CAPSAICIN) 0.1 % Cre, 0.1 % EX, CRE 11/10/21 Clonazepam (Klonopin) 0.5 Mg Tab, 0.5 MG PO TID, TAB 11/10/21 Insulin Regular (Human) (Humulin R) 100 Unit/Ml Inj, 100 UNIT IV, INJ 0.05 units/kg 11/10/21 Metformin Hydrochloride (Metformin Hcl) 500 Mg Tab, 500 MG PO BID, TAB 11/10/21 Information Source: Patient Mode of Arrival: Ambulatory Timing: Weeks Duration: Since onset Location of Back pain: (B) Lumbar Severity: Moderate Prehospital treatment: None Quality: Sharp Onset: Other (Previous infection s/p epidural) Circumstance: Other (s/p epidural) History of: Chronic Back Pain Past Medical History PAST MEDICAL HISTORY: DM, HTN Surgical History: Denies all surgeries MATHEMATICAL PHYSICIST History: Denies all MATHEMATICAL PHYSICIST Hx Family History Family History: Reviewed,noncontributory to illness, Unknown Social History Smoker: Non-Smoker Alcohol: Denies ETOH Use Drugs: Denies Drug Use Lives In: Home Constitutional: denies: chills, diaphoresis, fatigue, fever, malaise, sweats, weakness, others EENTM: denies: blurred vision, double vision, ear bleeding, ear discharge, ear drainage, ear pain, ear ringing, eye pain, eye redness, hearing loss, mouth pain, mouth swelling, nasal discharge, nose bleeding, nose congestion, nose pain, photophobia, tearing, throat pain, throat swelling, voice changes, others Respiratory: denies: cough, hemoptysis, orthopnea, SOB at rest, shortness of breath, SOB with excertion, stridor, wheezing, others Cardiovascular: denies: chest pain, dizzy spells, diaphoresis, Dyspnea on exertion, edema, irregular heart beat, left arm pain, lightheadedness, palpitations, PND, syncope, others Gastrointestinal: denies: abdomen distended, abdominal pain, blood streaked bowels, constipated, diarrhea, dysphagia, difficulty swallowing, hematemesis, melena, nausea, poor appetite, poor fluid intake, rectal bleeding, rectal pain, vomiting, others Genitourinary: denies: abnormal vagina bleeding, burning, dyspareunia, dysuria, flank pain, frequency, hematuria, incontinence, pain, , vagina discharge, urgency, others Neurological: denies: dizziness, fainting, headache, left sided numbness, left sided weakness, numbness, paresthesia, pre-existing deficit, right sided numbness, right sided weakness, seizure, speech problems, tingling, tremors, weakness, others Musculoskeletal: reports: back pain; denies: gout, joint pain, joint swelling, muscle pain, muscle stiffness, neck pain, others Integumetry: denies: bruises, change in color, change in hair/nails, dryness, laceration, lesions, lumps, rash, wounds, others Allergic/Immunocompromised: denies: Difficulty Healing, Frequent Infections, Hives, Itching, others Hematologic/Lymphatic: denies: anemia, blood clots, easy bleeding, easy bruising, swollen glands, others Endocrine: denies: excessive hunger, excessive sweating, excessive thirst, excessive urination, flushing, intolerance to cold, intolerance to heat, unexplained weight gain, unexplained weight loss, others Psychiatric: denies: anxiety, bipolar disorder, depression, hopeless, panic disorder, schizophrenia, sleepless, suicidal, others All Other Systems: Reviewed and Negative Physical Exam General Appearance: No Apparent Distress, Normal HEENT: Normal ENT Inspection, Pharynx Normal, TMs Normal Neck: Full Range of Motion, Non-Tender, Normal, Normal Inspection Respiratory: Chest Non-Tender, Lungs Clear, No Accessory Muscle Use, No Respiratory Distress, Normal Breath Sounds Cardiovascular: No Edema, No JVD, No Murmur, No Gallop, Normal Peripheral Pulses, Regular Rate/Rhythm Breast Exam: Deferred Gastrointestinal: No Organomegaly, Non Tender, No Pulsatile Mass, Normal Bowel Sounds, Soft Genitalia: Deferred Pelvic: Deferred Rectal: Deferred Extremities: No calf tenderness, Normal capillary refill, Normal inspection, Normal range of motion, Non-tender, No pedal edema Musculoskeletal : Apperance: Tenderness (Diffuse tenderness to back and ambulating with cane) Neurologic: Alert, semiconductor wafers marker II-XII nml as Tested, No Motor Deficits, Normal Affect, Normal Mood, No Sensory Deficits Cerebellar Function: Normal Reflexes: Normal Skin: Dry, Normal Color, Warm Lymphatic: No Adenopathy Was a procedure done? Was a procedure done?: No Back Pain Differential Dx Differential Diagnosis: Musculoskeletal Pain, Other (Osteomyelitis, lumbar fracture, sciatica) X-Ray, Labs, Meds, VS Vital Signs Date Time Temp Pulse Resp B/P (MAP) Pulse Ox O2 Delivery O2 Flow Rate FiO2 01/29/25 16:59 97.9 94 18 148/98 96 97.9 Lab Test 01/29/25 18:09 Range/Units White Blood Count 6.2 4.4-10.8 10^3/uL Red Blood Count 3.85 L 4.0-5.20 10^6/uL Hemoglobin 11.6 L 12.2-16.2 g/dL Hematocrit 34.1 L 36.0-46.0 % Mean Corpuscular Volume 88.6 80.0-100.0 fL Mean Corpuscular Hemoglobin 30.0 28.0-32.0 pg Mean Corpuscular Hemoglobin Concent 33.9 32.0-36.0 g/dL Red Cell Distribution Width 16.8 H 11.8-14.3 % Platelet Count 249 140-450 10^3/uL Mean Platelet Volume 7.8 6.9-10.8 fL Neutrophils (%) (Auto) 55.2 37.0-80.0 % Lymphocytes (%) (Auto) 35.4 10.0-50.0 % Monocytes (%) (Auto) 6.8 0.0-12.0 % Eosinophils (%) (Auto) 2.3 0.0-7.0 % Basophils (%) (Auto) 0.3 0.0-2.0 % Neutrophils # (Auto) 3.4 1.6-8.6 10 ^3/uL Lymphocytes # (Auto) 2.2 0.4-5.4 10 ^3/uL Monocytes # (Auto) 0.4 0-1.3 10 ^3/uL Eosinophils # (Auto) 0.1 0-0.8 10 ^3/uL Basophils # (Auto) 0 0-0.2 10 ^3/uL Nucleated Red Blood Cells 0.0 % Sodium Level 139 136-145 mmol/L Potassium Level 3.9 3.5-5.1 mmol/L Chloride Level 105 98-107 mmol/L Carbon Dioxide Level 22 20-31 mmol/L Anion Gap 12 5-15 Blood Urea Nitrogen 15 9-23 mg/dL Creatinine 0.91 0.550-1.02 mg/dL Glomerular Filtration Rate Calc 69 >90 mL/min BUN/Creatinine Ratio 16.5 10.0-20.0 Serum Glucose 164 H 74-106 mg/dL Lactic Acid Level 0.9 0.4-2.0 mmol/L Calcium Level 9.4 8.7-10.4 mg/dL Total Bilirubin 0.3 0.2-1.0 mg/dL Aspartate Amino Transferase (AST) 27 13-40 U/L Alanine Aminotransferase (ALT) 28 7-40 U/L Alkaline Phosphatase 82 46-116 U/L Total Protein 7.0 5.7-8.2 g/dL Albumin 4.6 3.2-4.8 g/dL X-Ray, Labs, Meds, VS Comment Due to patient's history of osteomyelitis of the L5-S1 spinal region. Patient will be admitted for observation. Recommend MRI in the morning. Patient be started on vancomycin Patient currently hemodynamically stable Time of 1ST Reevaluation: 18:39 Reevaluation 1ST: Unchanged Patient Education/Counseling: Diagnosis, Treatment Family Education/Counseling: No Family Present SEPSIS Sepsis Screen Date sepsis recognized/suspect: Jan 29, 2025 Time Sepsis recognized/suspect: 1701 Recent Procedure: No On Antibiotic Therapy: No Respiratory Rate >20: No Heart Rate >90: Yes Temp<36 C (96.8 F) or >38.3 C: No SBP <90 or MAP <65 mmHG: No New Acute Mental Status Change: No Is the patient on CPAP, BIPAP,: No Physician Orders Urinalysis (01/29/25 17:41) Blood Culture (01/29/25 17:41) Ls Spine Wo Contrast (01/29/25 17:41) Vital Signs Date Time Temp Pulse Resp B/P (MAP) Pulse Ox O2 Delivery O2 Flow Rate FiO2 01/29/25 16:59 97.9 94 18 148/98 96 97.9 Laboratory Tests Test 01/29/25 18:09 Lactic Acid Level 0.9 mmol/L (0.4-2.0) White Blood Count 6.2 10^3/uL (4.4-10.8) Departure 1 Departure Time of Disposition: 20:02 Impression: Primary Impression: Musculoskeletal pain Additional Impression: Acute osteomyelitis of lumbar spine Disposition: 09 ADMITTED INPATIENT Condition: Stable Critical Care Note Critical Care Time?: No Stability Stability form required: No Heart Score Heart Score: Heart Score Response (Comments) Value History N/A 0 EKG N/A 0 Age N/A 0 Risk Factors N/A 0 Troponin N/A 0 Total 0 I personally scribed for ANASTACIA EUBANKS ([email or web address]) on 01/29/25 at 17:47. Electronically submitted by Keith Sanabria ([email or web address]). ANASTACIA EUBANKS Jan 29, 2025 17:47
[2025-01-29 18:43] LABS: Hematocrit 34.1 % (36.0-46.0); Hemoglobin 11.6 g/dL (12.2-16.2); Mean Corpuscular Hemoglobin 30.0 pg (28.0-32.0); Mean Corpuscular Volume 88.6 fL (80.0-100.0); Nucleated Red Blood Cells % 0.0 %
--- NOTE | 2025-01-29 18:51 | DVH ---
CT LS SPINE WO CONTRAST Date: 01/29/2025 06:09 PM History: osteo/ back pain Comparison: None TECHNIQUE: Multiple axial CT images of the lumbosacral spine were obtained using bone algorithm. Axial and coron al reformatting was done. Bone and soft tissue windows were reviewed. Radiation Dose Information: CT Dose: CTDI volume is 21.74 mGy. Dose-length product is 739.73 mGy*cm FINDINGS: No CT evidence of definite acute fracture, spinal dislocation, or significant appearing acute subluxa tion is seen. The visualized paraspinal soft tissues are grossly unremarkable. T12-L1 There is no evidence of central spinal canal or neuroforaminal stenosis. L1-L2 There is no evidence of central spinal canal or neuroforaminal stenosis. L2-L3 There is no evidence of central spinal canal or neuroforaminal stenosis. L3-L4 There is no evidence of central spinal canal or neuroforaminal stenosis. L4-L5 narrowing of the intervertebral disc space with bony erosion inferior endplate of L4 vacuum dis c phenomenon noted at 4 5 consistent with degenerative disc disease. L5-S1 There is no evidence of central spinal canal or neuroforaminal stenosis. Sclerotic changes supe rior plate of S1 bony erosion. May be due to osteoarthritis. IMPRESSION: 1. No definite CT evidence of acute fracture or dislocation of the bony lumbar spine. 2. Findings degenerative disc changes arthritis at 4 5 and L5-S1. 3. If infection is of clinical concern recommend MRI. HS:Y All CT scans at this medical facility are performed using dose modulation techniques as appropriate t o a performed exam including the following: Automated exposure control was utilized; adjustment of th e MA and/or KV according to patient size; and use of iterative reconstruction technique.
[2025-01-29 19:01] LABS: Alanine Aminotransferase 28 U/L (7-40); Albumin 4.6 g/dL (3.2-4.8); Alkaline Phosphatase 82 U/L (46-116); Anion Gap 12 (5-15); BUN/Creatinine Ratio 16.5 (10.0-20.0); Blood Urea Nitrogen 15 mg/dL (9-23); Calcium 9.4 mg/dL (8.7-10.4); Carbon Dioxide 22 mmol/L (20-31); Chloride 105 mmol/L (98-107); Potassium 3.9 mmol/L (3.5-5.1); Sodium 139 mmol/L (136-145); Total Protein 7.0 g/dL (5.7-8.2)
[2025-01-29 19:07] LABS: Bilirubin, Total 0.3 mg/dL (0.2-1.0); Glucose 164 mg/dL (74-106)
--- NOTE | 2025-01-29 20:15 | DVHHPRES ---
History of Present Illness Resident Creating Document: FLORIAN MARTINEZ RESIDENT History of Present Illness This is a 69-year-old female with past medical history of osteoporosis, diabetes mellitus, hypertension, osteomyelitis of lumbar spine, presented to the ER with chief complain of back pain. She reports that the back pain is sharp, shooting, progressively worsening since last 2 weeks, radiating as cramp like pain in lower extremities. Patient reported she was in the [facility] in September for osteomyelitis of her lumbar spine, where she was treated with IV antibiotics. She completed her 6 weeks of IV antibiotics. She went to her pain coordinator after worsening back pain, who advised MRI, which showed osteomyelitis of the lumbar spine, for which she was sent to the ER. Previous hospitalization: In September 2024 for Acute osteomyelitis of lumbar spine, treated with IV vancomycin and Rocephin for 6 weeks PMHx: Osteoporosis, diabetes mellitus, hypertension, osteomyelitis of lumbar spine PSHx: No significant surgical Family history: No significant family history Social history: Denies smoking, alcohol use, recreational drug use. Lives alone in her house. Full code. Next to kin is son Home medication: Lantus 45, famotidine 40, baclofen 10, clonazepam 0.5, albuterol, alendronate, losartan 50 Allergic history: No known allergies Patient was examined at bedside today. Patient is in visible distress, is admitted for further evaluation and management Review of Systems Musculoskeletal: back pain Allergies: Coded Allergies: NO KNOWN ALLERGIES (Unverified , 01/12/15) Exam Vital Signs Vital Signs Date Time Temp Pulse Resp B/P (MAP) Pulse Ox O2 Delivery O2 Flow Rate FiO2 01/29/25 16:59 97.9 94 18 148/98 96 97.9 Exam General: Patient alert and oriented in person, place and time. Patient following commands. HEENT: Normocephalic, atraumatic, moist mucous membranes Respiratory/pulmonary: Clear lungs bilaterally, vesicular murmurs present in almost all lung gandhi, no associated crackles or wheezes. Cardiovascular: Normal heart sounds S1 and S2 with no associated murmurs Abdomen: Abdomen nondistended, there is no pain to palpation in any of the abdominal quadrants, no palpable masses. Extremities: There is no peripheral edema present at the lower extremities. Mild Tenderness in lumbar spine Peripheral Pulses: 3+ Radial (R). 3+ Radial (L). 3+ Dorsalis pedis (R). 3+ Dorsalis pedis(L) Skin: No rashes or pruritus, there is no sacral edema present at this time. Neurological: Intact cranial nerves with no focal neurologic deficits Labs/Xrays Labs Test 01/29/25 18:09 Range/Units White Blood Count 6.2 4.4-10.8 10^3/uL Red Blood Count 3.85 L 4.0-5.20 10^6/uL Hemoglobin 11.6 L 12.2-16.2 g/dL Hematocrit 34.1 L 36.0-46.0 % Mean Corpuscular Volume 88.6 80.0-100.0 fL Mean Corpuscular Hemoglobin 30.0 28.0-32.0 pg Mean Corpuscular Hemoglobin Concent 33.9 32.0-36.0 g/dL Red Cell Distribution Width 16.8 H 11.8-14.3 % Platelet Count 249 140-450 10^3/uL Mean Platelet Volume 7.8 6.9-10.8 fL Neutrophils (%) (Auto) 55.2 37.0-80.0 % Lymphocytes (%) (Auto) 35.4 10.0-50.0 % Monocytes (%) (Auto) 6.8 0.0-12.0 % Eosinophils (%) (Auto) 2.3 0.0-7.0 % Basophils (%) (Auto) 0.3 0.0-2.0 % Neutrophils # (Auto) 3.4 1.6-8.6 10 ^3/uL Lymphocytes # (Auto) 2.2 0.4-5.4 10 ^3/uL Monocytes # (Auto) 0.4 0-1.3 10 ^3/uL Eosinophils # (Auto) 0.1 0-0.8 10 ^3/uL Basophils # (Auto) 0 0-0.2 10 ^3/uL Nucleated Red Blood Cells 0.0 % Sodium Level 139 136-145 mmol/L Potassium Level 3.9 3.5-5.1 mmol/L Chloride Level 105 98-107 mmol/L Carbon Dioxide Level 22 20-31 mmol/L Anion Gap 12 5-15 Blood Urea Nitrogen 15 9-23 mg/dL Creatinine 0.91 0.550-1.02 mg/dL Glomerular Filtration Rate Calc 69 >90 mL/min BUN/Creatinine Ratio 16.5 10.0-20.0 Serum Glucose 164 H 74-106 mg/dL Lactic Acid Level 0.9 0.4-2.0 mmol/L Calcium Level 9.4 8.7-10.4 mg/dL Total Bilirubin 0.3 0.2-1.0 mg/dL Aspartate Amino Transferase (AST) 27 13-40 U/L Alanine Aminotransferase (ALT) 28 7-40 U/L Alkaline Phosphatase 82 46-116 U/L Total Protein 7.0 5.7-8.2 g/dL Albumin 4.6 3.2-4.8 g/dL SEPSIS Sepsis Screen Date sepsis recognized/suspect: Jan 29, 2025 Time Sepsis recognized/suspect: 1700 Recent Procedure: No On Antibiotic Therapy: No Respiratory Rate >20: No Heart Rate >90: Yes Temp<36 C (96.8 F) or >38.3 C: No SBP <90 or MAP <65 mmHG: No New Acute Mental Status Change: No Is the patient on CPAP, BIPAP,: No Physician Orders Urinalysis (01/29/25 17:41) Blood Culture (01/29/25 17:41) Ls Spine Wo Contrast (01/29/25 17:41) Vancomycin 1gm/250ml Kit (01/29/25 20:15) Vital Signs Date Time Temp Pulse Resp B/P (MAP) Pulse Ox O2 Delivery O2 Flow Rate FiO2 01/29/25 16:59 97.9 94 18 148/98 96 97.9 Laboratory Tests Test 01/29/25 18:09 Lactic Acid Level 0.9 mmol/L (0.4-2.0) White Blood Count 6.2 10^3/uL (4.4-10.8) Assessment/Plan Assessment/Plan Osteomyelitis/ myelitis/ discitis of lumbar spine Degenerative disc disease CT shows degenerative disc changes arthritis at 4 5 and L5-S1. MRI report presented by patient shows extensive posterior myelitis/discitis L4- S1 Blood culture ordered IV vancomycin, Zosyn IV fluid bolus, maintenance Spinal surgery consulted Normocytic normochromic anemia Ferritin, iron panel, reticulocyte count, haptoglobin, vitamin B12 ordered Diabetes mellitus Sliding scale insulin A1c 6.8 Monitor blood glucose Diabetes education Diabetic diet Essential hypertension Losartan 50 p.o. daily DIET: Cardiac diet DVT PROPHYLAXIS: Lovenox GI PROPHYLAXIS: Protonix CODE STATUS: Goals of care discussed with patient at bedside for more than 36 minutes. Full code DISPOSITION: Med/surge Patient's status and plan discussed with the patient. Case discussed with Dr. León Plan discussed with: Patient, Other (Nurses) Date of Service: Jan 29, 2025 Billing Provider: MALIA GREER MD Common Visit Codes: [id number] INP/OBS CARE (HIGH) Secondary Visit Codes: [id number]-[id number] CARE PLAN 30 MINUTES FLORIAN MARTINEZ RESIDENT Jan 29, 2025 20:15 SKINNY CAMARA RESIDENT Jan 30, 2025 06:35
[2025-01-29 20:43] LABS: Magnesium 2.1 mg/dL (1.6-2.6); Triglycerides 67.0 mg/dL (< 150)
[2025-01-29 20:45] LABS: Cholesterol 159.0 mg/dL (< 200)
[2025-01-29 20:48] LABS: INR 0.96 (0.9-1.15); Partial Thromboplastin Time 27.7 SEC (24.5-34.5); Prothrombin Time 10.2 sec (9.3-11.8)
[2025-01-29] MEDS ORDERED: ACETAMINOPHEN 325 MG TAB PO PRN (21:00)
[2025-01-29 21:27] LABS: HDL Cholesterol 64.0 mg/dL (40-59)
[2025-01-29 21:56] LABS: Lipase 47.0 U/L (12-53)
[2025-01-29] MEDS ORDERED: DEXTROSE (50%) 50ML SYRG IV PRN (22:30)
[2025-01-29] MEDS ORDERED: VANCOMYCIN PER PHARMACY 0 MG IV SCH (22:30)
[2025-01-29 22:48] VITALS: O2SAT 98
[2025-01-29 23:00] VITALS: BP 105/61; PULSE 66; PULSE 80; RESP 18; TEMP 96.7; O2SAT 95; O2SAT 98
[2025-01-30] VITALS (7 sets, daily range): BP systolic 102–163; BP diastolic 60–96; PULSE 72–86; RESP 14–18; TEMP 96.6–98.9; O2SAT 95–98
[2025-01-30] MEDS: SODIUM CHLORIDE 0.9% 500 ML IV ONE (00:53)
[2025-01-30] MEDS: ENOXAPARIN SOD 40 MG/0.4 ML SYRINGE SC SCH (01:03)
[2025-01-30] MEDS: MORPHINE SULFATE 4 MG/ML SYR/VIAL IV PRN (01:05)
[2025-01-30] MEDS: VANCOMYCIN 1GM/250ML KIT 250 ML IV ONE (02:00)
[2025-01-30] MEDS: SODIUM CHLORIDE 0.9% 1,000 ML IV SCH (03:19)
[2025-01-30] MEDS: BACLOFEN 10 MG TAB PO SCH (05:18)
[2025-01-30] MEDS: PIPERACILLIN-TAZOB 3.375GM 100 ML IV SCH (05:23)
[2025-01-30 06:36] LABS: Hematocrit 37.1 % (36.0-46.0); Hemoglobin 12.5 g/dL (12.2-16.2); Mean Corpuscular Hemoglobin 30.1 pg (28.0-32.0); Mean Corpuscular Volume 89.6 fL (80.0-100.0); Nucleated Red Blood Cells % 0.1 %
[2025-01-30] MEDS: InsuLIN REG 1unit/0.01ml Soln (100units/ml) SC SCH (06:43)
[2025-01-30] MEDS: ACCU-CHEK COMFORT CURVE STRIP VI SCH (07:15)
[2025-01-30 07:42] LABS: Urine Protein, UAD Negative (Negative)
[2025-01-30 07:53] LABS: Opiate Scree,Urine Pos (NEGATIVE)
[2025-01-30 07:58] LABS: Amphetamine Screen, Urine Neg (NEGATIVE); Barbiturate Scree,Urine Neg (NEGATIVE); Benzodiazephine Screen, Urine Neg (NEGATIVE); Cannabinoid Screen, Urine Neg (NEGATIVE); Cocaine Screen, Urine Neg (NEGATIVE); Phencyclidine Screen, Urine Neg (NEGATIVE)
[2025-01-30 09:53] LABS: Alanine Aminotransferase 22 U/L (7-40); Albumin 4.3 g/dL (3.2-4.8); Alkaline Phosphatase 74 U/L (46-116); Anion Gap 10 (5-15); BUN/Creatinine Ratio 12.7 (10.0-20.0); Bilirubin, Total 0.6 mg/dL (0.2-1.0); Blood Urea Nitrogen 10 mg/dL (9-23); Calcium 8.8 mg/dL (8.7-10.4); Carbon Dioxide 25 mmol/L (20-31); Potassium 3.8 mmol/L (3.5-5.1); Sodium 143 mmol/L (136-145); Total Protein 6.8 g/dL (5.7-8.2)
[2025-01-30] MEDS: LOSARTAN POTASSIUM 50 MG TAB PO SCH (10:00)
[2025-01-30] MEDS: PANTOPRAZOLE 40 MG/10 ML VIAL INJ IV SCH (10:00)
[2025-01-30 10:02] LABS: Chloride 108 mmol/L (98-107); Glucose 147 mg/dL (74-106)
[2025-01-30] MEDS ORDERED: CEFEPIME 1GM/50ML 50 ML IV SCH ×2 (11:00→14:00)
[2025-01-30] MEDS: CEFEPIME 1GM/50ML 50 ML IV SCH (11:31)
--- NOTE | 2025-01-30 12:08 | DVH ---
LEFT HIP RADIOGRAPH. CLINICAL INDICATION: Left Hip pain TECHNIQUE: 3 views of the left hip were obtained. FINDINGS: There is no evidence of fracture, subluxation or dislocation. Moderate left hip osteoarthri tis. The bony mineralization is normal.No radiopaque foreign body is identified. IMPRESSION: 1. No evidence of acute bony injury.
[2025-01-30] MEDS: VANCOMYCIN 750MG KIT 100 ML IV SCH (15:11)
--- NOTE | 2025-01-30 15:38 | DVHSR ---
APPROVED REPORT EXAM: LIMITED Two-dimensional and M-mode echocardiogram with Doppler and color Doppler. Blood Pressure: 163/96 mmHg INDICATION Rule out infective endocarditis RISK FACTORS Height: 5' 3", Weight: 129 DIMENSIONS LVDd3.5 (3.8-5.7cm)LA (2D)3.1 (1.9-4.0cm)Aortic Root3.1 (2.0-3.7cm) LVDs2.5 (2.5-4.0cm)LA (MM) (1.9-4.0cm)Aortic Cusp Exc1.4 (1.5-2.0cm) EF (%) 56.0 (55-70%)Rt. Atrium3.5 (1.9-4.0cm)Asc. Aorta cm IVSd1.0 (0.7-1.1cm)RV (D) (1.8-2.4cm) PWd1.0 (0.7-1.1cm) Mitral Valve MitralMitral Stenosis E wave0.90m/sMV Mean GR.mmHg A wave1.00m/sMV Peak GR.mmHg E/A ratio0.92D MVAcm2 Aortic Valve Aortic ValveAortic Stenosis V11.20m/Natasha Mean GR.3mmHg V21.20m/Natasha Peak GR.6mmHg LVOT Diameter2.1 (1.8-2.4cm)Doppler AVA3.46cm2 Other Information Quality : Technically LimitedRhythm : Technically limited study due to body habitus and patient position, patient on right side and can no t turn due to severe pain. Conclusion lvef 60 % normal rv function normal atrian no severe valve abnormalities noted
--- NOTE | 2025-01-30 19:05 | DVHPNRES ---
Progress Note Date Seen: Jan 30, 2025 Resident Creating Document: YAMILE RIVERA RESIDENT Medical Necessity Reason Pt with a Central, PICC or Fol: No Subjective Review of Systems This is a 69-year-old female with past medical history of osteoporosis, diabetes mellitus, hypertension, osteomyelitis of lumbar spine, presented to the ER with chief complain of back pain. She reports that the back pain is sharp, shooting, progressively worsening since last 2 weeks, radiating as cramp like pain in lower extremities. Patient reported she was in the [facility] in September for osteomyelitis of her lumbar spine, where she was treated with IV antibiotics. She completed her 6 weeks of IV antibiotics. She went to her painter and grader cork after worsening back pain, who advised MRI, which showed osteomyelitis of the lumbar spine, for which she was sent to the ER. Previous hospitalization: In September 2024 for Acute osteomyelitis of lumbar spine, treated with IV vancomycin and Rocephin for 6 weeks PMHx: Osteoporosis, diabetes mellitus, hypertension, osteomyelitis of lumbar spine PSHx: No significant surgical Family history: No significant family history Social history: Denies smoking, alcohol use, recreational drug use. Lives alone in her house. Full code. Next to kin is son Home medication: Lantus 45, famotidine 40, baclofen 10, clonazepam 0.5, albuterol, alendronate, losartan 50 Allergic history: No known allergies The patient was seen and examined at bedside today. Overnight events were reviewed. She reports intractable lower back pain despite having morphine. She denies any chest pain, shortness of breath, fever or any other complaints today. Objective vital signs Vital Sign Date Time Temp Pulse Resp B/P (MAP) Pulse Ox O2 Delivery O2 Flow Rate FiO2 01/30/25 17:34 72 17 134/74 01/30/25 16:51 97.9 96 97.9 01/29/25 23:00 Room Air* 0 21 Total Intake and Output 01/29/25 01/29/25 01/30/25 15:00 23:00 07:00 Intake Total 960 ml Output Total 0 ml Balance 960 ml medications Current Medications Medications Dose Ordered Sig/Eron Route Start Time Stop Time Status Last Admin Dose Admin Acetaminophen 325 mg Q4HP PRN PO 01/29/25 21:00 Ondansetron HCl 4 mg Q4HP PRN IV 01/29/25 21:00 Morphine Sulfate 2 mg Q4HPRN PRN IV 01/29/25 21:00 01/30/25 17:34 2 MG Enoxaparin Sodium 40 mg DAILY@1800 SC 01/29/25 21:00 01/30/25 17:33 40 MG Pantoprazole Sodium 40 mg DAILY IV 01/30/25 10:00 01/30/25 10:00 40 MG Losartan Potassium 50 mg DAILY PO 01/30/25 10:00 01/30/25 10:00 50 MG Diagnostic Test (Pha) 1 strip ACHS 01/30/25 07:00 01/30/25 17:33 1 STRIP Insulin Human Regular ACHS SC 01/30/25 07:00 01/30/25 11:58 3 UNITS Dextrose 50 ml UD PRN IV 01/29/25 22:30 Baclofen 5 mg Q8HR PO 01/30/25 06:00 01/30/25 14:00 5 MG Cefepime HCl 50 ml @ 12.5 mls/hr Q8HR IV 01/30/25 14:00 UNV Insulin Glargine 10 units HS SC 01/30/25 22:00 Examination Pt is lying on bed General Appearance: Alert, Oriented X3, Cooperative, Mild distress HEENT: Atraumatic, Mucous membranes moist/pink Respiratory: Clear to auscultation, Normal air movement, No added sounds Cardiovascular: Regular rate, Normal S1, Normal S2, No murmurs Abdominal/ : Active bowel sounds, Soft, no distention, no tenderness Musculoskeletal: Mild lumbar spinal tenderness. Left hip tenderness Extremities: No edema, Normal pulses, No tenderness/swelling Skin: No Significant rash, except past surgical scars Neuro: Normal speech, sensorimotor deficits none Psych/Mental Status: Mental status NL, Mood NL Nurse was there as systems checkout mechanic during examination laboratory and microbiology Laboratory Tests 01/30/25 08:57 01/30/25 06:09 Test 01/30/25 08:57 Range/Units Serum Glucose 147 H 74-106 mg/dL Microbiology Date/Time Source Procedure Growth Status 01/29/25 18:09 Blood Blood Culture - Preliminary NO GROWTH AFTER 24 HOURS OF INCUBATION. Resulted Labs and/or images reviewed: Labs reviewed by me, Image(s) reviewed by me Problem List/Assessment/Plan Problem List/Assessment/Plan Osteomyelitis/ myelitis/ discitis of lumbar spine Degenerative disc disease CT shows degenerative disc changes arthritis at 4 5 and L5-S1. MRI report presented by patient shows extensive posterior myelitis/discitis L4- S1 Hip x-ray reveals moderate left hip osteoarthritis Blood culture: no growth within 24 hours. IV vancomycin, Zosyn discontinued due to no clinical and lab evidence of osteomyelitis. IV fluid bolus, maintenance Spinal surgery consulted Normocytic normochromic anemia Ferritin, iron panel, reticulocyte count, haptoglobin, vitamin B12 within normal limits Echocardiogram: lvef 60 % normal rv function normal atrian no severe valve abnormalities noted Diabetes mellitus Sliding scale insulin A1c 6.8 Monitor blood glucose Diabetes education Diabetic diet Essential hypertension Losartan 50 p.o. daily DIET: Cardiac diet DVT PROPHYLAXIS: Lovenox GI PROPHYLAXIS: Protonix CODE STATUS: Goals of care discussed with patient at bedside for more than 36 minutes. Full code DISPOSITION: Med/surge Case discussed with Dr. Palacios. Plan discussed with: Patient, Other (RN) Date of Service: Jan 30, 2025 Billing Provider: CHANTEL PALACIOS MD Common Visit Codes: [id number] INP/OBS CARE(HIGH) Secondary Visit Codes: [id number] CARE PLAN 30 MINUTES YAMILE RIVERA RESIDENT Jan 30, 2025 19:05 CHANTEL PALACIOS MD Feb 04, 2025 20:41
[2025-01-30] MEDS: ONDANSETRON HCL 4 MG/2 ML VIAL IV PRN (22:08)
[2025-01-30] MEDS: INSULIN LANTUS (GLARGINE) 1 /0.01ml (100units/ml) SC SCH (23:21)
[2025-01-31 01:00] VITALS: BP 115/56; PULSE 92; RESP 18; TEMP 98.2; O2SAT 94
[2025-01-31 05:00] VITALS: BP 129/80; PULSE 86; RESP 18; TEMP 98.2; O2SAT 96
[2025-01-31 07:50] LABS: Hematocrit 34.1 % (36.0-46.0); Hemoglobin 11.7 g/dL (12.2-16.2); Mean Corpuscular Hemoglobin 30.2 pg (28.0-32.0); Mean Corpuscular Volume 88.0 fL (80.0-100.0); Nucleated Red Blood Cells % 0.1 %
[2025-01-31 07:54] LABS: Anion Gap 11 (5-15); Carbon Dioxide 25 mmol/L (20-31); Chloride 106 mmol/L (98-107); Potassium 3.9 mmol/L (3.5-5.1); Sodium 142 mmol/L (136-145)
[2025-01-31 07:55] LABS: Calcium 8.9 mg/dL (8.7-10.4)
[2025-01-31 08:00] LABS: BUN/Creatinine Ratio 12.1 (10.0-20.0); Glucose 95 mg/dL (74-106)
[2025-01-31 08:01] LABS: Blood Urea Nitrogen 8 mg/dL (9-23)
[2025-01-31 08:25] VITALS: PULSE 84; RESP 18; O2SAT 97
[2025-01-31 08:37] VITALS: BP 133/80; PULSE 84; RESP 18; TEMP 98.5; O2SAT 97
[2025-01-31] MEDS: IBUPROFEN 600 MG TAB PO SCH (10:04)
--- NOTE | 2025-01-31 10:52 | DVHDSRES ---
Discharge Summary Date of Admission Resident Creating Document: YAMILE RIVERA Jan 29, 2025 at 20:57 Date of Discharge: Jan 31, 2025 Admitting Diagnosis Osteomyelitis Labs/Diagnostic Data: Laboratory Results Test 01/31/25 06:25 01/31/25 06:18 01/30/25 10:31 01/30/25 08:57 POC Glucose 98 mg/dl (70-106) White Blood Count 5.2 10^3/uL (4.4-10.8) Red Blood Count 3.87 10^6/uL (4.0-5.20) Hemoglobin 11.7 g/dL (12.2-16.2) Hematocrit 34.1 % (36.0-46.0) Mean Corpuscular Volume 88.0 fL (80.0-100.0) Mean Corpuscular Hemoglobin 30.2 pg (28.0-32.0) Mean Corpuscular Hemoglobin Concent 34.3 g/dL (32.0-36.0) Red Cell Distribution Width 16.7 % (11.8-14.3) Platelet Count 222 10^3/uL (140-450) Mean Platelet Volume 7.9 fL (6.9-10.8) Neutrophils (%) (Auto) 59.8 % (37.0-80.0) Lymphocytes (%) (Auto) 28.2 % (10.0-50.0) Monocytes (%) (Auto) 8.0 % (0.0-12.0) Eosinophils (%) (Auto) 3.5 % (0.0-7.0) Basophils (%) (Auto) 0.5 % (0.0-2.0) Neutrophils # (Auto) 3.1 10 ^3/uL (1.6-8.6) Lymphocytes # (Auto) 1.5 10 ^3/uL (0.4-5.4) Monocytes # (Auto) 0.4 10 ^3/uL (0-1.3) Eosinophils # (Auto) 0.2 10 ^3/uL (0-0.8) Basophils # (Auto) 0 10 ^3/uL (0-0.2) Nucleated Red Blood Cells 0.1 % Sodium Level 142 mmol/L (136-145) Potassium Level 3.9 mmol/L (3.5-5.1) Chloride Level 106 mmol/L (98-107) Carbon Dioxide Level 25 mmol/L (20-31) Anion Gap 11 (5-15) Blood Urea Nitrogen 8 mg/dL (9-23) Creatinine 0.66 mg/dL (0.550-1.02) Glomerular Filtration Rate Calc 95 mL/min (>90) BUN/Creatinine Ratio 12.1 (10.0-20.0) Serum Glucose 95 mg/dL (74-106) Calcium Level 8.9 mg/dL (8.7-10.4) Erythrocyte Sedimentation Rate 15 mm/hr (0-20) Total Bilirubin 0.6 mg/dL (0.2-1.0) Aspartate Amino Transferase (AST) 24 U/L (13-40) Alanine Aminotransferase (ALT) 22 U/L (7-40) Alkaline Phosphatase 74 U/L (46-116) Total Protein 6.8 g/dL (5.7-8.2) Albumin 4.3 g/dL (3.2-4.8) Test 01/30/25 07:22 01/30/25 06:09 01/29/25 18:09 Urine Color Light-yellow (Yellow) Urine Clarity Clear (Clear) Urine pH 5.5 (5.0-9.0) Urine Specific [place] 1.018 (1.001-1.035) Urine Protein Negative (Negative) Urine Ketones Negative (Negative) Urine Blood Negative /uL (Negative) Urine Nitrite Negative (Negative) Urine Bilirubin Negative (Negative) Urine Urobilinogen Normal mg/dL (Negative) Urine Leukocyte Esterase Negative /uL (Negative) Urine RBC 4 /hpf (0 - 4) Urine Microscopic WBC 1 /HPF (0-5) Urine Squamous Epithelial Cells Few /hpf (<5) Urine Bacteria None seen /hpf (None Seen) Urine Glucose Normal mg/dL (Normal) Urine Opiates Screen Pos (NEGATIVE) Urine Fentanyl Screen Neg (NEGATIVE) Urine Barbiturates Screen Neg (NEGATIVE) Urine Phencyclidine Screen Neg (NEGATIVE) Urine Amphetamines Screen Neg (NEGATIVE) Urine Benzodiazepines Screen Neg (NEGATIVE) Urine Cocaine Screen Neg (NEGATIVE) Urine Cannabinoids Screen Neg (NEGATIVE) Treponema pallidum Antibody Non-reactive (Negative) HIV (1&2) Antibody Negative (Negative) Prothrombin Time 10.2 sec (9.3-11.8) Prothrombin Time INR 0.96 (0.9-1.15) Activated Partial Thromboplast Time 27.7 SEC (24.5-34.5) Hemoglobin A1c 6.8 % A1C (<5.7) Lactic Acid Level 0.9 mmol/L (0.4-2.0) Phosphorus Level 4.0 mg/dL (2.4-5.1) Magnesium Level 2.1 mg/dL (1.6-2.6) C-Reactive Protein High Sensitivity 0.92 mg/dL (<1.0) Triglycerides Level 67 mg/dL (< 150) Cholesterol Level 159 mg/dL (< 200) LDL Cholesterol 89 mg/dL (< 100) HDL Cholesterol 64 mg/dL (40-59) Lipase 47 U/L (12-53) Vitamin B12 Level 529 pg/mL (211-911) Vitamin D 25-Hydroxy 36.4 ng/mL (30.0-100) Thyroid Stimulating Hormone (TSH) 2.06 uIU/mL (0.55-4.78) Other Laboratory Tests 01/31/25 06:18 Brief Hx & Hospital Course: This is a 69-year-old female with past medical history of osteoporosis, diabetes mellitus, hypertension, osteomyelitis of lumbar spine, presented to the ER with chief complain of back pain. She reports that the back pain is sharp, shooting, progressively worsening since last 2 weeks, radiating as cramp like pain in lower extremities. Patient reported she was in the [facility] in September for osteomyelitis of her lumbar spine, where she was treated with IV antibiotics. She completed her 6 weeks of IV antibiotics. She went to her toy painter after worsening back pain, who advised MRI, which showed osteomyelitis of the lumbar spine, for which she was sent to the ER. Previous hospitalization: In September 2024 for Acute osteomyelitis of lumbar spine, treated with IV vancomycin and Rocephin for 6 weeks PMHx: Osteoporosis, diabetes mellitus, hypertension, osteomyelitis of lumbar spine PSHx: No significant surgical Family history: No significant family history Social history: Denies smoking, alcohol use, recreational drug use. Lives alone in her house. Full code. Next to kin is son Home medication: Lantus 45, famotidine 40, baclofen 10, clonazepam 0.5, albuterol, alendronate, losartan 50 Allergic history: No known allergies Patient was treated with IV vancomycin and Zosyn on admission, due to previous MRI showing osteomyelitis. However, based on clinical and imaging findings antibiotics were not deemed necessary. We discontinued antibiotic. CT scan showed degenerative disc changes at level 4 5 lumbar spine hip x-ray and MRI revealed left hip osteoarthritis. Blood culture reveals no growth in 24 hours. Intractable left hip pain was managed with morphine and ibuprofen. Spine surgery was consulted, advised to follow up with orthopedics. Based on patient's previous MRI done in November, there was concern for metastatic lesions. The finding was explained thoroughly to the patient and patient agreed to follow up with PCP and get further workup done. Patient is advised follow up with us at discharge clinic to. On the day of discharge patient was hemodynamically stable and verbalized understanding of the treatment and discharge plan. Examination Pt is lying on bed General Appearance: Alert, Oriented X3, Cooperative, Mild distress HEENT: Atraumatic, Mucous membranes moist/pink Respiratory: Clear to auscultation, Normal air movement, No added sounds Cardiovascular: Regular rate, Normal S1, Normal S2, No murmurs Abdominal/ : Active bowel sounds, Soft, no distention, no tenderness Musculoskeletal: Mild lumbar spinal tenderness. Left hip tenderness Extremities: No edema, Normal pulses, No tenderness/swelling Skin: No Significant rash, except past surgical scars Neuro: Normal speech, sensorimotor deficits none Psych/Mental Status: Mental status NL, Mood NL Nurse was there as flaking roll operator during examination Case discussed with Dr. Caicedo Operations or Procedures [place] [address] Ph: [phone] DIAGNOSTIC IMAGING Diagnostic Imaging Report : [id number] Signed PATIENT: EVE HAND ACCT: [id number] UNIT: [id number] : 1955 LOC: [facility] ROOM / BED: [facility] / A AGE / SEX: 69 / F ADM STATUS: ADM IN SERVICE 1031 ORDERING PHYSICIAN: MACY CORNEJO RESIDENT PROCEDURE(s): LHIP - L HIP COMPLETE XRAY REASON: Left Hip pain ORDER NUMBER(s): [id number], ACCESSION NUMBER(s): [id number] LEFT HIP RADIOGRAPH. CLINICAL INDICATION: Left Hip pain TECHNIQUE: 3 views of the left hip were obtained. FINDINGS: There is no evidence of fracture, subluxation or dislocation. Moderate left hip osteoarthritis. The bony mineralization is normal.No radiopaque foreign body is identified. IMPRESSION: 1. No evidence of acute bony injury. ATED BY: REMIGIO DESIR MD DICTATED DATE/TIME: 01/30/251204 SIGNED BY: REMIGIO DESIR MD SIGNED DATE/TIME: 01/30/251204 Ph: [phone] DIAGNOSTIC IMAGING Diagnostic Imaging Report : [id number] Signed PATIENT: EVE HAND ACCT: [id number] UNIT: [id number] : 1955 LOC: ER ROOM / BED: / AGE / SEX: 69 / F ADM STATUS: REG ER SERVICE 40 ORDERING PHYSICIAN: ANASTACIA EUBANKS PROCEDURE(s): LS2CT - LS SPINE WO CONTRAST REASON: osteo/ back pain ORDER NUMBER(s): [id number], ACCESSION NUMBER(s): [id number] CT LS SPINE WO CONTRAST Date: 01/29/2025 06:09 PM History: osteo/ back pain Comparison: None TECHNIQUE: Multiple axial CT images of the lumbosacral spine were obtained using bone algorithm. Axial and coronal reformatting was done. Bone and soft tissue windows were reviewed. Radiation Dose Information: CT Dose: CTDI volume is 21.74 mGy. Dose-length product is 739.73 mGy*cm FINDINGS: No CT evidence of definite acute fracture, spinal dislocation, or significant appearing acute subluxation is seen. The visualized paraspinal soft tissues are grossly unremarkable. T12-L1 There is no evidence of central spinal canal or neuroforaminal stenosis. L1-L2 There is no evidence of central spinal canal or neuroforaminal stenosis. L2-L3 There is no evidence of central spinal canal or neuroforaminal stenosis. L3-L4 There is no evidence of central spinal canal or neuroforaminal stenosis. L4-L5 narrowing of the intervertebral disc space with bony erosion inferior endplate of L4 vacuum disc phenomenon noted at 4 5 consistent with degenerative disc disease. L5-S1 There is no evidence of central spinal canal or neuroforaminal stenosis. Sclerotic changes superior plate of S1 bony erosion. May be due to osteoarthritis. IMPRESSION: 1. No definite CT evidence of acute fracture or dislocation of the bony lumbar spine. 2. Findings degenerative disc changes arthritis at 4 5 and L5-S1. 3. If infection is of clinical concern recommend MRI. HS:Y All CT scans at this medical facility are performed using dose modulation techniques as appropriate to a performed exam including the following: Automated exposure control was utilized; adjustment of the MA and/or KV according to patient size; and use of iterative reconstruction technique. ATED BY: QUINCY MEJIAS Jr., DO DICTATED DATE/TIME: 01/29/251848 SIGNED BY: QUINCY MEJIAS Jr., DIAGNOSTIC IMAGING Diagnostic Imaging Report : [id number] Signed PATIENT: EVE HAND ACCT: [id number] UNIT: [id number] : 1955 LOC: [facility] ROOM / BED: [facility] / A AGE / SEX: 69 / F ADM STATUS: ADM IN SERVICE 0004 ORDERING PHYSICIAN: SKINNY CAMARA RESIDENT PROCEDURE(s): ECIDC - ECHO 2D MODE CARDIAC DOP REASON: Rule out infective endocarditis ORDER NUMBER(s): [id number], ACCESSION NUMBER(s): [id number] APPROVED REPORT EXAM: LIMITED Two-dimensional and M-mode echocardiogram with Doppler and color Doppler. Blood Pressure: 163/96 mmHg INDICATION Rule out infective endocarditis RISK FACTORS Height: 5' 3", Weight: 129 DIMENSIONS LVDd 3.5 (3.8-5.7cm) LA (2D) 3.1 (1.9-4.0cm) Aortic Root 3.1 (2.0- 3.7cm) LVDs 2.5 (2.5-4.0cm) LA (MM) (1.9-4.0cm) Aortic Cusp Exc 1.4 (1.5- 2.0cm) EF (%) 56.0 (55-70%) Rt. Atrium 3.5 (1.9-4.0cm) Asc. Aorta cm IVSd 1.0 (0.7-1.1cm) RV (D) (1.8-2.4cm) PWd 1.0 (0.7-1.1cm) Mitral Valve Mitral Mitral Stenosis E wave 0.90m/s MV Mean GR. mmHg A wave 1.00m/s MV Peak GR. mmHg E/A ratio 0.9 2D MVA cm2 Aortic Valve Aortic Valve Aortic Stenosis V1 1.20m/s AO Mean GR. 3mmHg V2 1.20m/s AO Peak GR. 6mmHg LVOT Diameter 2.1 (1.8-2.4cm) Doppler VANI 3.46cm2 Other Information Quality : Technically Limited Rhythm : Technically limited study due to body habitus and patient position, patient on right side and can not turn due to severe pain. Conclusion lvef 60 % normal rv function normal atrian no severe valve abnormalities noted SIGNED BY: SHREYAS JACKSON MD SIGNED DATE/TIME: 01/30/25 0248 CC: Condition at Discharge: Stable Final Diagnosis/Problems List Ruled out osteomyelitis/discitis Degenerative disease of the lumbar spine Diabetes Hypertension Normocytic normochromic anemia Discharge Disposition: Home Discharge Instruct/Medications Scheduled Alendronate Sodium (Fosamax), 70 MG PO QWEEKLY, (Reported) Clonazepam (Klonopin), 0.5 MG PO TID, (Reported) Dicyclomine Hcl (Bentyl Capsule), 10 MG PO BID, (Reported) Famotidine (Pepcid Tablet), 20 MG PO BID, (Reported) Ibuprofen Micronized (Ibuprofen), 600 MG PO BID Lisinopril (Lisinopril), 20 MG PO DAILY, (Reported) Metformin Hydrochloride (Metformin Hcl), 500 MG PO BID, (Reported) Miscellaneous Medications Capsaicin (Capsaicin), 0.1 % EX, (Reported) Insulin Regular (Human) (Humulin R), 100 UNIT IV, (Reported) Discharge Statement: "Patient was advised to return to the ER or call 911 if any headaches, dizziness, shortness of breath, chest pain, abdominal pain, bleeding, fevers, or worsening of medical condition. Patient was counseled about treatment plan, medications, possible side effects, patientverbalized understanding. All questions were answered to the best of my ability. This discharge took greater then 30 minutes in planning, reviewing documentation, counseling the patient, and discussing with other team members." ASSESSMENT ASSESSMENT Assessment Date of Service: Jan 31, 2025 Billing Provider: CHANTEL CAICEDO MD Common Visit Codes: 72101-KDB/OBS DISCH DAY >30min MIGUEL,YAMILE RESIDENT Jan 31, 2025 10:52 CHANTEL CAICEDO MD Feb 04, 2025 20:41
[2025-01-31 11:39] LABS: Hepatitis B Surface Antigen Negative (Negative)
[2025-01-31 12:07] LABS: Chlamydia Trachomatis, NAA Negative (Negative); Neisseria gonorrhoeae, NAA Negative (Negative)
[2025-01-31 12:49] VITALS: BP 143/86; PULSE 109; RESP 20; TEMP 96.8; O2SAT 98
[2025-01-31 12:55] LABS: Hepatitis C Antibody Reactive (Negative)
--- NOTE | 2025-01-31 13:39 | DVHINCON2 ---
Consultation - Surgical Date Seen: Jan 31, 2025 Referring Physician Referring Physician Attending Doctor: Lilly Novak Resident Resident Creating Document: FLORIAN MARTINEZ RESIDENT Reason for Consultation osteomyelitis of lumbar spine History of Present Illness History of Present Illness History of Present Illness This is a 69-year-old female with past medical history of osteoporosis, diabetes mellitus, hypertension, osteomyelitis of lumbar spine, presented to the ER with chief complain of back pain. She reports that the back pain is sharp, shooting, progressively worsening since last 2 weeks, radiating as cramp like pain in lower extremities. Patient reported she was in the [facility] in September for osteomyelitis of her lumbar spine, where she was treated with IV antibiotics. She completed her 6 weeks of IV antibiotics. She went to her painter helper spray after worsening back pain, who advised MRI, which showed osteomyelitis of the lumbar spine, for which she was sent to the ER. Past Medical/Surgical History Past Medical/Surgical History Previous hospitalization: In September 2024 for Acute osteomyelitis of lumbar spine, treated with IV vancomycin and Rocephin for 6 weeks PMHx: Osteoporosis, diabetes mellitus, hypertension, osteomyelitis of lumbar spine PSHx: No significant surgical Family and Social History Family and Social History Family history: No significant family history Social history: Denies smoking, alcohol use, recreational drug use. Lives alone in her house. Full code. Next to kin is son Home medication: Lantus 45, famotidine 40, baclofen 10, clonazepam 0.5, albuterol, alendronate, losartan 50 Allergic history: No known allergies Allergies and medications Allergies: Coded Allergies: NO KNOWN ALLERGIES (Unverified , 01/12/15) Home Meds Active Scripts Ibuprofen Micronized (Ibuprofen) 600 Mg Tab, 600 MG PO BID for 30 Days, #60 TAB 0 Refills Prov:MACY CORNEJO RESIDENT 01/31/25 Reported Medications Lisinopril (Lisinopril) 20 Mg Tab, 20 MG PO DAILY, TAB 12/13/21 Famotidine (PEPCID TABLET) 20 Mg Tb, 20 MG PO BID, TAB 12/13/21 Dicyclomine Hcl (BENTYL CAPSULE) 10 Mg Cp, 10 MG PO BID, CAP 12/13/21 Alendronate Sodium (Fosamax) 70 Mg Tab, 70 MG PO QWEEKLY, TAB Take once a week at least 30 minutes before first meal, beverage or medication. 11/10/21 Capsaicin (CAPSAICIN) 0.1 % Cre, 0.1 % EX, CRE 11/10/21 Clonazepam (Klonopin) 0.5 Mg Tab, 0.5 MG PO TID, TAB 11/10/21 Insulin Regular (Human) (Humulin R) 100 Unit/Ml Inj, 100 UNIT IV, INJ 0.05 units/kg 11/10/21 Metformin Hydrochloride (Metformin Hcl) 500 Mg Tab, 500 MG PO BID, TAB 11/10/21 Review of systems Review of Systems: MSK:Abnormal ( osteomyelitis of lumbar spine) Examination Vital signs Imaging: ORDERING PHYSICIAN: ANASTACIA EUBANKS PROCEDURE(s): LS2CT - LS SPINE WO CONTRAST REASON: osteo/ back pain ORDER NUMBER(s): [id number], ACCESSION NUMBER(s): [id number] CT LS SPINE WO CONTRAST Date: 01/29/2025 06:09 PM History: osteo/ back pain Comparison: None TECHNIQUE: Multiple axial CT images of the lumbosacral spine were obtained using bone algorithm. Axial and coronal reformatting was done. Bone and soft tissue windows were reviewed. Radiation Dose Information: CT Dose: CTDI volume is 21.74 mGy. Dose-length product is 739.73 mGy*cm FINDINGS: No CT evidence of definite acute fracture, spinal dislocation, or significant appearing acute subluxation is seen. The visualized paraspinal soft tissues are grossly unremarkable. T12-L1 There is no evidence of central spinal canal or neuroforaminal stenosis. L1-L2 There is no evidence of central spinal canal or neuroforaminal stenosis. L2-L3 There is no evidence of central spinal canal or neuroforaminal stenosis. L3-L4 There is no evidence of central spinal canal or neuroforaminal stenosis. L4-L5 narrowing of the intervertebral disc space with bony erosion inferior endplate of L4 vacuum disc phenomenon noted at 4 5 consistent with degenerative disc disease. L5-S1 There is no evidence of central spinal canal or neuroforaminal stenosis. Sclerotic changes superior plate of S1 bony erosion. May be due to oste oarthritis. IMPRESSION: 1. No definite CT evidence of acute fracture or dislocation of the bony lumbar spine. 2. Findings degenerative disc changes arthritis at 4 5 and L5-S1. 3. If infection is of clinical concern recommend MRI. Historical MRI: 10/13/2024 ORDERING PHYSICIAN: YAO SUH MD PROCEDURE(s): MSL - LUMBAR SPINE WO CONTRAST REASON: Rule out osteomyelitis of the spine ORDER NUMBER(s): [id number], ACCESSION NUMBER(s): [id number] EXAM: MRI LUMBAR SPINE WO CONTRAST CLINICAL HISTORY: Rule out osteomyelitis of the spine COMPARISON: None TECHNIQUE: MRI imaging of the lumbar was performed on a MRI imaging system without intravenous contrast. FINDINGS: Rib-bearing lumbar-type vertebrae. Normal alignment of the lumbar spine. The vertebral body heights relatively maintained. Heterogeneous marrow signal of T12 through L3 which saturates out on the STIR. Inferior L5 with the adjacent superior S1 acute appearing Schmorl node. Near-complete T1 hypointense, T2 / FLAIR hyperintensity of L5 [id number]-left L4 and S1 vertebral bodies. There is minimal L4 anterior disc edema extending to an anterior inferior L4 endplate focal irregularity. Otherwise, no Significant marrow edema of the disc or endplate erosive changes. No significant abnormalities of the psoas muscles. The conus terminates at the level of the lower vertebral body of L1. No abnormal cord signal. T12-L1: No significant spinal canal or neural foramina stenosis. L1-L2: No significant spinal canal or neural foramina stenosis. Mild bilateral facet effusion. L2-L3: No significant spinal canal or neural foramina stenosis. Mild bilateral facet effusion. L3-L4: Spinal canal and neural foramina stenosis. Mild bilateral facet effusion. L4-L5: Mild posterior disc bulge without significant spinal canal stenosis. Moderate bilateral neural foramina stenosis. L5-S1: Mild posterior disc bulge with superimposed central disc protrusion and minimal annular fissure without significant spinal canal stenosis. Severe bilateral neural foramina stenosis. Mild atrophy of the lower paraspinal muscles. Mild nonspecific lower back midline Subcutaneous fat edema. IMPRESSION: Near-complete T1 hypointense, T2/FLAIR hyperintense marrow signal of the L5 greater than L4 and S1 vertebral bodies with minimal L4-L5 anterior disc edema associated minimal cortical inferior L4 endplates irregularity. Otherwise, no significant edema of the disc. Correlate for Possible atypical spinal osteomyelitis versus metastasis. Moderate bilateral neural foramina stenosis at L4-L5 with severe bilateral neural foramina stenosis at L5-S1. Vital Signs Date Time Temp Pulse Resp B/P (MAP) Pulse Ox O2 Delivery O2 Flow Rate FiO2 01/31/25 12:49 96.8 109 20 143/86 (105) 98 96.8 01/31/25 08:25 Room Air* 0 21 Medications Current Medications Medications (Trade) Dose Ordered Sig/Eron Route PRN Reason Start Time Stop Time Status Last Admin Cefepime HCl 50 ml @ 12.5 mls/hr Q8HR IV 01/30/25 14:00 UNV Metronidazole 100 ml @ 100 mls/hr Q8HR IV 01/30/25 14:00 01/30/25 17:18 DC 01/30/25 14:00 Vancomycin HCl 100 ml @ 100 mls/hr Q12H IV 01/30/25 14:00 01/30/25 17:18 DC 01/30/25 15:11 Insulin Glargine (Lantus) 10 units HS SC 01/30/25 22:00 01/30/25 23:21 Ibuprofen (Motrin Tablet) 600 mg BID PO 01/31/25 10:00 01/31/25 10:04 Laboratory Labs Test 01/31/25 11:48 01/31/25 06:18 01/30/25 10:31 01/30/25 08:57 Range/Units POC Glucose 127 H 70-106 mg/dl White Blood Count 5.2 4.4-10.8 10^3/uL Red Blood Count 3.87 L 4.0-5.20 10^6/uL Hemoglobin 11.7 L 12.2-16.2 g/dL Hematocrit 34.1 L 36.0-46.0 % Mean Corpuscular Volume 88.0 80.0-100.0 fL Mean Corpuscular Hemoglobin 30.2 28.0-32.0 pg Mean Corpuscular Hemoglobin Concent 34.3 32.0-36.0 g/dL Red Cell Distribution Width 16.7 H 11.8-14.3 % Platelet Count 222 140-450 10^3/uL Mean Platelet Volume 7.9 6.9-10.8 fL Neutrophils (%) (Auto) 59.8 37.0-80.0 % Lymphocytes (%) (Auto) 28.2 10.0-50.0 % Monocytes (%) (Auto) 8.0 0.0-12.0 % Eosinophils (%) (Auto) 3.5 0.0-7.0 % Basophils (%) (Auto) 0.5 0.0-2.0 % Neutrophils # (Auto) 3.1 1.6-8.6 10 ^3/uL Lymphocytes # (Auto) 1.5 0.4-5.4 10 ^3/uL Monocytes # (Auto) 0.4 0-1.3 10 ^3/uL Eosinophils # (Auto) 0.2 0-0.8 10 ^3/uL Basophils # (Auto) 0 0-0.2 10 ^3/uL Nucleated Red Blood Cells 0.1 % Sodium Level 142 136-145 mmol/L Potassium Level 3.9 3.5-5.1 mmol/L Chloride Level 106 98-107 mmol/L Carbon Dioxide Level 25 20-31 mmol/L Anion Gap 11 5-15 Blood Urea Nitrogen 8 L 9-23 mg/dL Creatinine 0.66 0.550-1.02 mg/dL Glomerular Filtration Rate Calc 95 >90 mL/min BUN/Creatinine Ratio 12.1 10.0-20.0 Serum Glucose 95 74-106 mg/dL Calcium Level 8.9 8.7-10.4 mg/dL Erythrocyte Sedimentation Rate 15 0-20 mm/hr Total Bilirubin 0.6 0.2-1.0 mg/dL Aspartate Amino Transferase (AST) 24 13-40 U/L Alanine Aminotransferase (ALT) 22 7-40 U/L Alkaline Phosphatase 74 46-116 U/L Total Protein 6.8 5.7-8.2 g/dL Albumin 4.3 3.2-4.8 g/dL Test 01/30/25 07:22 01/30/25 06:09 01/29/25 18:09 Range/Units Urine Color Light-yellow Yellow Urine Clarity Clear Clear Urine pH 5.5 5.0-9.0 Urine Specific [place] 1.018 1.001-1.035 Urine Protein Negative Negative Urine Ketones Negative Negative Urine Blood Negative Negative /uL Urine Nitrite Negative Negative Urine Bilirubin Negative Negative Urine Urobilinogen Normal Negative mg/dL Urine Leukocyte Esterase Negative Negative /uL Urine RBC 4 0 - 4 /hpf Urine Microscopic WBC 1 0-5 /HPF Urine Squamous Epithelial Cells Few <5 /hpf Urine Bacteria None seen None Seen /hpf Urine Glucose Normal Normal mg/dL Urine Opiates Screen Pos NEGATIVE Urine Fentanyl Screen Neg NEGATIVE Urine Barbiturates Screen Neg NEGATIVE Urine Phencyclidine Screen Neg NEGATIVE Urine Amphetamines Screen Neg NEGATIVE Urine Benzodiazepines Screen Neg NEGATIVE Urine Cocaine Screen Neg NEGATIVE Urine Cannabinoids Screen Neg NEGATIVE Chlamydia trachomatis (SWETHA) Negative Negative Neisseria gonorrhoeae (SWETHA) Negative Negative Treponema pallidum Antibody Non-reactive Negative Hepatitis A IgM Antibody Negative Hepatitis B Surface Antigen Negative Negative Hepatitis B Core IgM Antibody Negative Negative Hepatitis C Antibody Reactive *A Negative HIV (1&2) Antibody Negative Negative Prothrombin Time 10.2 9.3-11.8 sec Prothrombin Time INR 0.96 0.9-1.15 Activated Partial Thromboplast Time 27.7 24.5-34.5 SEC Hemoglobin A1c 6.8 H <5.7 % A1C Lactic Acid Level 0.9 0.4-2.0 mmol/L Phosphorus Level 4.0 2.4-5.1 mg/dL Magnesium Level 2.1 1.6-2.6 mg/dL C-Reactive Protein High Sensitivity 0.92 <1.0 mg/dL Triglycerides Level 67 < 150 mg/dL Cholesterol Level 159 < 200 mg/dL LDL Cholesterol 89 < 100 mg/dL HDL Cholesterol 64 H 40-59 mg/dL Lipase 47 12-53 U/L Vitamin B12 Level 529 211-911 pg/mL Vitamin D 25-Hydroxy 36.4 30.0-100 ng/mL Thyroid Stimulating Hormone (TSH) 2.06 0.55-4.78 uIU/mL Microbiology Date/Time Source Procedure Growth Status 01/30/25 07:22 Voided Urine Urine Culture - Preliminary Resulted 01/29/25 18:09 Blood Blood Culture - Preliminary NO GROWTH AFTER 24 HOURS OF INCUBATION. Resulted Examination: GENERAL:Normal, HEENT:Normal, NECK:Normal, LUNGS:Normal, CVS:Normal, ABDOMEN:Normal, MSK:Normal (Patient is able to ambulate with the as sistance of a cane, she is able to transition from sitting to standing without any assistance. Patient states that her pain has greatly improved since admission), SKIN:Normal, NEURO:Normal (Patient reports no changes in sensation or weakness to legs, or bilateral upper extremities. Patient understands that most of her pain is related to her hip arthritis), :Normal Problem List/Assessment/Plan Problems: (1) Degenerative disc disease (DDD) of lumbosacral region with discogenic back pain and leg pain (2) Lumbar radiculopathy Assessment and Plan degenerative disc changes arthritis at 4 5 and L5-S1 At this point in time the patient is not demonstrating signs of osteomyelitis as far as her lab work is showing. Continue care and support per admitting team's discretion Physical therapy evaluation, treatment recommendations and safe discharge planning recommendations Effective pain management including muscle relaxers if the patient is complain ing of muscle spasms Discussed treatment options with the patient patient and we will be following up with her primary care provider regarding her hip arthritis. Patient states that she is not having back pain at this time and she is able to ambulate safely with a cane and feels that she is at baseline Patient also reports that her pain is greatly improved No barriers to discharge from a spine surgery perspective, patient does not need emergent signs surgery for the degenerative disc findings Call with questions Rik Love [facility] Orthopaedic Spine Surgery nurse practitioner For Dr Nawaf Cortes Patient was examined, chart reviewed, labs evaluated, and diagnostic studies and findings analyzed. Case was discussed with Dr. Javi Cortes who formulated the plan of care. This medical document was created using an electronic medical record system with [employer] dictation system. Although this document has been carefully reviewed, there might still be some phonetic and typographical errors. These areas are purely typographical due to imperfections of the software programs, and do not reflect any compromise in the patient's medical care. Plan discussed with Plan discussed with: Patient, Other (Admitting team) Visit Coding Surgery Date of Service if different f: Jan 31, 2025 Billing Provider: MARIANO LOVE NP Surgery Visit Codes: 22278 - INP CONSULT <55 MIN MARIANO LOVE NP Jan 31, 2025 13:39
[2025-01-31] MEDS ORDERED: IBUP1TAB5 PO ×2 (14:13→14:28)
[2025-01-31 14:37] VITALS: BP_SYST 133; BP_SYST 143; BP_DIAS 80; BP_DIAS 86; PULSE 109; RESP 20; TEMP 36; O2SAT 98
== END 2025-01-31 16:13 | disposition home health service (06) | DRG 552 ==
LOC: ER 16:57 → OVERFLOW 20:57 → EAST 22:54
PROVIDERS: ADMIT Internal Medicine Geriatric Medicine; ATTEND Internal Medicine Geriatric Medicine
DX: M51.16 Intervertebral disc disorders with radiculopathy, lumbar region (principal); I10 Essential (primary) hypertension; D64.9 Anemia, unspecified; M79.18 Myalgia, other site; M81.0 Age-related osteoporosis without current pathological fracture; E11.9 Type 2 diabetes mellitus without complications
CPT/HCPCS: 36415; 72131; 73502; 80048; 80053; 80061; 80074; 80307; 81001; 82306; 82607; 82962; 83036; 83605; 83690; 83735; 84100; 84443; 85025; 85610; 85652; 85730; 86141; 86703; 86780; 87040; 87086; 93306; 97163; G0378; J1815; J2405; J2470; J2543; J3490